=== PATIENT | female | born 1950 | race Caucasian/White ===

== ENCOUNTER 2017-11-01 06:10 | Inpatient (IN) ==
[2017-11-01] MEDS ORDERED: ASPIRIN 81 MG CHEWABLE TABLET PO ONE (06:21)
[2017-11-01] MEDS ORDERED: NS 1,000 ML IV ONE (06:21)
[2017-11-01] MEDS ORDERED: NITROGLYCERIN 0.4 MG SUBLINGUAL TABLET SL PRN (06:21)
[2017-11-01] MEDS ORDERED: HEPARIN 1,000unit/ml INJECTION 10ml IVP ONE (06:22)
[2017-11-01] MEDS: SALINE FLUSH 10ml SYRINGE IVF PRN ×2 (06:32→06:41)
--- NOTE | 2017-11-01 06:40 | Emergency Department Report ---
SOB HPI - General Chief Complaint: Shortness of Breath/Dyspnea Stated Complaint: dyspnea,htn Time Seen by Provider: 11/01/17 06:21 Source: patient, EMS, RN notes reviewed, old records reviewed Mode of arrival: EMS Limitations: no limitations - History of Present Illness 67yo woman presents to the ER this AM for evaluation of dyspnea at rest. 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 They stopped at a local gas station and called for EMS. Pt states that she has had some dyspnea at rest for the last 3- 4 days, but this became severe and disabling while driving this AM. Pt has never had sx like this before. Denies any CP or other sx besides air hunger. Pt recently changed to Dr. Eckert; has a h/o DM, but denies cardiac or pulmonary hx. This AM, pt d/c'ed her ultram, thinking that this med may have contributed to her sx. On initial evaluation, pt was tachypneic, tachy to 170s, and HTN to 270s/200s. Pt given 5mg of labetalol IV with decreased pressure (210s/140s) and decreased rate (140s). No dynamic changes on EKG, but ?ST inversion in aVR. On presentation, pts SaO2 had improved; only required 6L by NC to maintain sat of 92%. MD Complaint: shortness of breath Onset (ago): minute(s) Severity: severe Consistency/Duration: constant Relieving factors: oxygen, rest, upright position, medication (labetalol) Exacerbating factors: lying flat, exertion, movement, other (speaking) Known history of: diabetes Associated symptoms: denies other symptoms Treatment prior to arrival: oxygen, bronchodilator (No relief), other (Labetolol ) - Related Data Home Medications Medication Instructions Recorded Confirmed Humulin 70/30 (insulin NPH and reg See Label Instructions SQ BID 03/08/17 human insulin) 100 unit/mL (70-30) SQ Ibuprofen 600 mg PO PRN PRN 11/01/17 11/01/17 Tramadol [Ultram] 50 mg PO PRN PRN 11/01/17 11/01/17 Allergies Allergy/AdvReac Type Severity Reaction Status Date / Time metformin [From Glucophage] Allergy Severe Acidosis Verified 11/01/17 10:26 codeine [Codiene] AdvReac Shortness Verified 11/01/17 10:26 of Breath (Air) Review of Systems All systems: reviewed and negative except as stated Cardiovascular: Reports: as per HPI, dyspnea on exertion. Denies: chest pain, palpitations, orthopnea, edema, syncope, paroxysmal nocturnal dyspnea Respiratory: Reports: as per HPI, dyspnea. Denies: cough, wheezes, hemoptysis, stridor PFS Patient Stated Medical History Dental Problems Yes Hearing Loss Yes Other HEENT Yes: wears glasses Hypertension Yes Diabetes Mellitus Type 2 Yes Gastroesophageal Reflux Yes Disease Other Musculoskeletal Yes: fibromyalgia Clinic Medical History Carpal tunnel syndrome (Chronic Medical) Diabetes mellitus (Chronic Medical) HTN (hypertension) (Chronic Medical) Heart murmur (Chronic Medical) Hypercholesteremia (Chronic Medical) IBS (irritable bowel syndrome) (Chronic Medical) Obesity (Chronic Medical) Osteoarthritis (Chronic Medical) Thoracic outlet syndrome (Chronic Medical) Surgical History: Carpal tunnel bilaterally 1989. Cholecystectomy 1975. Tonsillectomy 1959. Tubal ligation 1977. Parotid tumor removal 1977, benign. Hernia surgery 1994 Family History: Family History Father , age 80 of CHF CHF (congestive heart failure) Prostate cancer Rheumatoid arthritis CVD (cardiovascular disease) Myocardial infarct Mother , age 70 lung CA Lung cancer Tachycardia Osteoporosis Celiac disease Sister , age 62 lung cancer Lung cancer Sister No problems noted. Sister No problems noted. - Social History Household members: spouse Current occupation: self employed, works for [employer], her and her , [place] Physical Exam - Limitations Limitations: no limitations - General General appearance: alert, in distress (Resp), obese (Morbid) - Normal Exams: Head:: Normocephalic without trauma Eyes:: Pupils are PERRLA w/ EOMI, No scleral icterus, irritation, or foreign bodies noted ENMT:: No facial trauma, nasal exudates, pharyngeal erythema, or exudates are noted Neck:: Full range of motion, without adenopathy Lymphatic:: No lymphadenopathy Musculoskeletal:: No tenderness, or deformity noted, good range of motion Integumentary:: No rashes, hives, or bruising noted Neurological:: Patient is alert, and oriented, cranial nerves, motor/sensory/ cerebellar, exams w/o gross deficits Psychiatric:: Patient exhibits, appropriate attention - Chest Chest inspection: Present: normal inspection, symmetric chest wall rise. Absent : tenderness, rash - Respiratory Respiratory exam: Present: wheezes (Throughout). Absent: normal lung sounds bilaterally (Absent lung sounds in LLL), respiratory distress, stridor, prolonged expiratory phase, crackles - Cardiovascular Cardiovascular exam: Present: tachycardia, normal heart sounds, +S1, +S2. Absent: regular rate, normal rhythm (?a-Fib), systolic murmur, diastolic murmur , rubs, gallop, clicks, +S3, +S4 - Abdominal Exam Abdominal exam: Present: soft, normal bowel sounds. Absent: distention, tenderness, guarding, rebound, rigidity Course - Consultations Consultation #1: Dr. Stack: Ok with starting heparin for now. Obtain PE study prior to considering further cardiac intervention. 0750: Pt will need unit admission. May require esmolol drip. Time: 06:25 Consultation #2: Hospitalist: Recommends target SBP of 180. May consider diuretics if fluid overloaded. Time: 07:45 Vital Signs Temperature 98.1 F 11/01/17 06:22 Pulse Rate 144 H 11/01/17 06:22 Respiratory Rate 24 11/01/17 06:22 Blood Pressure 217/116 H 11/01/17 06:22 Pulse Oximetry 92 11/01/17 06:22 Temperature 98.1 F 11/01/17 06:22 Pulse Rate 146 H 11/01/17 10:27 Respiratory Rate 28 H 11/01/17 10:27 Blood Pressure 226/135 H 11/01/17 09:53 Pulse Oximetry 100 11/01/17 10:27 Shortness of Breath/Dyspnea - [facility] Narrative Medical decision making narrative: Initial suspicion for PE based on sx and presenting VS. Elevated d-dimer corroborated this suspicion. Some apparently dynamic ST changes on EKG obtained in ER (compared to by EMS). CT-PE did not show a definitive PE or dissection, but was limited by body habitus and streak artifact. Sepsis labs obtained due to ground-glass opacities and grossly elevated WBCs. Will await results. After pt stabilized, discussed pt again with cardiology and hospitalist. Hospitalist will admit for further eval/treatment. Gave recs for management in the meanwhile. Cardiology also recommended unit admission with further eval. - Differential Diagnosis Likely: acute exacerbation of chronic obstructive airways disease, congestive heart failure, community acquired pneumonia, pulmonary embolism - Medical Records Attestation: I reviewed the patient's medical records. - Lab Data Attestation: I reviewed the patient's lab results. Result diagrams: 11/01/17 06:18 11/01/17 06:18 Lab Results 11/01/17 11/01/17 11/01/17 Range/Units 06:18 06:18 06:18 WBC 24.6 H (4.5-11.0) T/MM3 RBC 4.64 (4.00-5.20) M/MM3 Hgb 12.8 (12-16) GM/DL Hct 41.4 (36-46) % MCV 89.2 (80-100) UM3 MCH 27.6 (26-34) UUG MCHC 30.9 L (31-37) GM/DL RDW Std Deviation 49.2 (36.9-50.2) FL Plt Count 406 H (130-400) T/MM3 MPV 12.9 H (9.4-12.4) UM3 Immature Gran % (Auto) Not performed Neut % (Auto) Not performed Lymph % (Auto) Not performed [place] % (Auto) Not performed Eos % (Auto) Not performed Baso % (Auto) Not performed Neut # (Auto) Not performed Lymph # (Auto) Not performed [place] # (Auto) Not performed Eos # (Auto) Not performed Baso # (Auto) Not performed Abs Immat Gran (auto) Not performed Neutrophils % (Manual) 42.0 (33-66) % Lymphocytes % (Manual) 46.0 H (23-45) % Monocytes % (Manual) 8.0 (0-9.0) % Eosinophils % (Manual) 3.0 (0-4) % Basophils % (Manual) 1.0 (0-2) % Neutrophils # (Manual) 10.3 H (1.8-7.7) T/MM3 Lymphocytes # (Manual) 11.3 H (1-4.8) T/MM3 Monocytes # (Manual) 2.0 H (0-0.8) T/MM3 Eosinophils # (Manual) 0.7 H (0-0.5) T/MM3 Basophils # (Manual) 0.2 (0-0.2) T/MM3 RBC Morph Comment Normal D-Dimer 2991 H (0-230) NG/ML Turbidity < 20 (0-20) Sodium 146 H (134-144) MEQ/L Potassium 4.2 (3.6-5) MEQ/L Chloride 105 (98-107) MEQ/L Carbon Dioxide 25 (22-30) MEQ/L Anion Gap 16 H (5-15) MEQ/L BUN 13.0 (7-17) MG/DL Creatinine 0.9 (0.7-1.2) mg/dL GFR Calculation 62 BUN/Creatinine Ratio 14 (6-26) RATIO Glucose 274 H (65-110) MG/DL Calculated Osmolality 291 H (261-280) MOSM/KG Calcium 9.9 (8.4-10.2) MG/DL Total Bilirubin 0.70 (0.20-1.30) MG/DL Icterus Index < 2 (0-7) AST 25 (14-36) U/L ALT 33 (9-52) U/L Alkaline Phosphatase 108 (38-126) U/L Troponin I 0.042 (0-0.12) ng/ml NT-Pro-B Natriuret Pep 1080 H (0-175) pg/mL Total Protein 8.2 (6.3-8.2) g/dL Albumin 4.8 (3.5-5.0) g/dL Globulin 3.4 (2.4-3.6) G/DL Albumin/Globulin Ratio 1.4 (1.1-2.2) RATIO Lipase 107 (23-300) U/L Plasma Lactate (0.6-2.2) MMOL/L Specimen Hemolysis < 15 (0-25) 11/01/17 Range/Units 07:54 WBC (4.5-11.0) T/MM3 RBC (4.00-5.20) M/MM3 Hgb (12-16) GM/DL Hct (36-46) % MCV (80-100) UM3 MCH (26-34) UUG MCHC (31-37) GM/DL RDW Std Deviation (36.9-50.2) FL Plt Count (130-400) T/MM3 MPV (9.4-12.4) UM3 Immature Gran % (Auto) Neut % (Auto) Lymph % (Auto) [place] % (Auto) Eos % (Auto) Baso % (Auto) Neut # (Auto) Lymph # (Auto) [place] # (Auto) Eos # (Auto) Baso # (Auto) Abs Immat Gran (auto) Neutrophils % (Manual) (33-66) % Lymphocytes % (Manual) (23-45) % Monocytes % (Manual) (0-9.0) % Eosinophils % (Manual) (0-4) % Basophils % (Manual) (0-2) % Neutrophils # (Manual) (1.8-7.7) T/MM3 Lymphocytes # (Manual) (1-4.8) T/MM3 Monocytes # (Manual) (0-0.8) T/MM3 Eosinophils # (Manual) (0-0.5) T/MM3 Basophils # (Manual) (0-0.2) T/MM3 RBC Morph Comment D-Dimer (0-230) NG/ML Turbidity (0-20) Sodium (134-144) MEQ/L Potassium (3.6-5) MEQ/L Chloride (98-107) MEQ/L Carbon Dioxide (22-30) MEQ/L Anion Gap (5-15) MEQ/L BUN (7-17) MG/DL Creatinine (0.7-1.2) mg/dL GFR Calculation BUN/Creatinine Ratio (6-26) RATIO Glucose (65-110) MG/DL Calculated Osmolality (261-280) MOSM/KG Calcium (8.4-10.2) MG/DL Total Bilirubin (0.20-1.30) MG/DL Icterus Index (0-7) AST (14-36) U/L ALT (9-52) U/L Alkaline Phosphatase (38-126) U/L Troponin I 0.089 D (0-0.12) ng/ml NT-Pro-B Natriuret Pep (0-175) pg/mL Total Protein (6.3-8.2) g/dL Albumin (3.5-5.0) g/dL Globulin (2.4-3.6) G/DL Albumin/Globulin Ratio (1.1-2.2) RATIO Lipase (23-300) U/L Plasma Lactate 1.7 (0.6-2.2) MMOL/L Specimen Hemolysis < 15 (0-25) - Radiology Data Attestation: I reviewed the patient's radiology results. - EKG Data EKG #1 EKG attestation: Yes: I reviewed and interpreted this EKG. EKG shows normal: axis, intervals, QRS complexes Rate: tachycardia Rhythm: A. flutter ST segment depression in: v3, v4, v5 Critical Care Time Critical Care Time: Yes Total Critical Care Time: 95 Attestation: 95 min of critical care time assigned to this case due to its urgency, complexity of decision making, need for continued patient re-evaluation, or resources devoted to stabilizing the patient. Disposition Clinical Impression: Malignant hypertension, Pleural effusion, Ground glass opacity present on imaging of lung, Respiratory distress Disposition: 02 To [facility] Acute Care Condition: Improved Time of Disposition: 08:02 - Seen By: physician
[2017-11-01] MEDS: HEPARIN DRIP 20,000 UNIT/500 ML BAG IV SCH (06:41)
[2017-11-01] MEDS ORDERED: SALINE FLUSH 10ml SYRINGE ONE (06:56)
[2017-11-01] MEDS ORDERED: IOHEXOL 350mg/ml 100ml INJECTION ONE (06:56)
[2017-11-01] MEDS ORDERED: LABETALOL 100mg/20ml INJECTION IVP ONE ×2 (07:25→07:30)
[2017-11-01] MEDS ORDERED: NS IV PRN (07:28)
[2017-11-01] MEDS ORDERED: LABETALOL IV PRN (07:28)
--- NOTE | 2017-11-01 07:30 | XRay Report ---
Indication: Possible NSTEMI PROCEDURE: XR chest 1V: Encounter: Initial Comparison: CT angiogram of the chest from the same date Findings: Diffuse interstitial prominence with scattered groundglass opacities and interlobular septal thickening, seen on the CT. Small pleural effusions. No pneumothorax. Cardiac silhouette is moderately enlarged. Mediastinal contours are normal. Pulmonary vascularity is enlarged. Impression: Moderate to severe pulmonary edema. .
[2017-11-01] MEDS ORDERED: CEFEPIME 1 GM in NS 100 ML IV ONE (07:38)
--- NOTE | 2017-11-01 07:54 | CT Scan Report ---
Indication: Abrupt onset dyspnea PROCEDURE: CT angio pulm emb/aorta chest: Encounter: Initial Technique: Axial CT angiography in the systemic arterial phase was performed through the chest with contrast. Noncontrast axial CT imaging through the chest was also performed. Coronal and sagittal MIP reconstructed images were created and reviewed. Three-dimensional surface shaded volume rendered imaging of the aorta and arterial vasculature was created by the technologist on a dedicated workstation under the direction of the interpreting radiologist and reviewed. Axial CT angiography through the chest was also performed in the pulmonary arterial phase with coronal and sagittal MIP reconstructed images created and reviewed. Automated Exposure Control and Iterative Reconstruction dose reducing techniques were utilized. Contrast: 120mL Omnipaque 350 Comparison: Chest x-ray from today Findings: CT angiogram of the chest for PE: Pulmonary arteries: Exam is diagnostic to the interlobar pulmonary arterial level. Motion and streak artifact precludes adequate evaluation of the segmental and subsegmental vessels. There are no filling defects identified to suggest a pulmonary embolus. Other findings: Severe interlobular septal thickening with diffuse centrilobular groundglass opacities and small pleural effusions bilaterally. No pneumothorax. The central airways are patent. No axillary adenopathy. There are prominent mediastinal nodes in the paratracheal region measuring up to 1.5 cm in short axis dimension. Heart size is normal. No pericardial effusion. The upper abdomen shows no acute findings. Impression: 1. No pulmonary embolus. 2. Severe pulmonary edema. 3. Mediastinal adenopathy could be reactive due to the acute process in the chest although underlying neoplasm, metastatic disease or lymphoma cannot be entirely excluded. CT angiogram of the chest for aorta: Findings: Noncontrast images show no evidence of an intramural hematoma. There is significant attenuation artifact due to patient body habitus and motion. Postcontrast images show no definite evidence of aortic dissection. No aneurysm. Contrast bolus timing is somewhat suboptimal. The visualized upper abdominal aorta is normal in caliber with mild atherosclerotic plaque at the left renal and SMA origins. Please see the above report for further details on the extravascular findings in the chest. Impression: Somewhat limited exam without evidence of aortic aneurysm or dissection. .
[2017-11-01] MEDS ORDERED: LABETALOL 100mg/20ml INJECTION IVP PRN (11:16)
[2017-11-01] MEDS ORDERED: BUTALBITAL PO PRN (11:18)
[2017-11-01] MEDS ORDERED: CAFFEINE PO PRN (11:18)
[2017-11-01] MEDS ORDERED: ACETAMINOPHEN PO PRN (11:18)
[2017-11-01] MEDS ORDERED: LABETALOL 100 MG TABLET PO SCH (11:45)
[2017-11-01] MEDS ORDERED: LABETALOL 100 MG TABLET PO ONE (14:12)
[2017-11-01] MEDS ORDERED: AMIODARONE 150 MG in NS 100 ML IV ONE (14:17)
[2017-11-01] MEDS ORDERED: AMIODARONE 450 MG in NS 250ml 250 ML IV SCH (14:30)
--- NOTE | 2017-11-01 15:05 | Echocardiogram ---
DATE OF PROCEDURE November 01, [address] David Cortes This is a two-dimensional echo with spectral Doppler, color-flow and M-mode. It was obtained in a patient with hypertensive urgency. Left atrial dimension is normal. Left ventricular end-diastolic dimension is normal. Left ventricle wall thickness is increased. LV systolic function is normal with ejection fraction of 65%. Right atrium is normal. Right ventricle is normal. Aortic root dimension is normal. Mitral annulus is calcified. Mitral valve leaflets are normal with moderate mitral regurgitation. Aortic valve shows fibrocalcific changes with restriction on opening motion. Transaortic velocities are increased with peak velocity of 3.55 m/sec with peak gradient of 50 and mean gradient of 33. Aortic valve area is calculated at 1.14 cm2. There is no aortic insufficiency. Tricuspid valve shows mild tricuspid regurgitation with estimated pulmonary artery systolic pressure of 34. Pulmonary valve shows mild pulmonary insufficiency. There is no pericardial effusion. IMPRESSION 1. Normal LV systolic function with ejection fraction of 65%. 2. Mild concentric left ventricular hypertrophy. 3. Mitral annulus calcification with moderate mitral regurgitation. 4. Moderate aortic stenosis with a valve area of 1.14 cm2. 5. Mild tricuspid regurgitation with estimated pulmonary artery systolic pressure of 34. 6. Mild pulmonary insufficiency. MTDD
[2017-11-01] MEDS: AMLODIPINE 5 MG TABLET PO SCH (15:21)
--- NOTE | 2017-11-01 15:54 | History & Physical Report ---
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 Has never had any episode similar to this, denies nausea vomiting or malaise. Did not have any chest pain but did have some headache and blurry vision. She has had no sick contacts and has not had any medication changes. She was seen by her primary care physician approximately 2 weeks ago and at that time was told that her blood pressure was normal. Review of Systems All systems PM: 10-point ROS was reviewed, no additional remarkable complaints except Past Medical History Patient Stated Medical History Migraine Yes: infrequently Dental Problems Yes Hearing Loss Yes Other HEENT Yes: wears glasses Cardiac Arrhythmia Yes Heart Murmur Yes Hypertension Yes Diabetes Mellitus Type 2 Yes Gastroesophageal Reflux Yes Disease Other GI Yes: diverticulitis Hx Urinary Tract Infection Yes Other Musculoskeletal Yes: degenerative disk dz Shingles Yes Clinic Medical History Carpal tunnel syndrome (Chronic Medical) Diabetes mellitus (Chronic Medical) HTN (hypertension) (Chronic Medical) Heart murmur (Chronic Medical) Hypercholesteremia (Chronic Medical) IBS (irritable bowel syndrome) (Chronic Medical) Obesity (Chronic Medical) Osteoarthritis (Chronic Medical) Thoracic outlet syndrome (Chronic Medical) Surgical History: Carpal tunnel bilaterally 1989. Cholecystectomy 1975. Tonsillectomy 1959. Tubal ligation 1977. Parotid tumor removal 1977, benign. Hernia surgery 1994 Family History: Family History Father , age 80 of CHF CHF (congestive heart failure) Prostate cancer Rheumatoid arthritis CVD (cardiovascular disease) Myocardial infarct Mother , age 70 lung CA Lung cancer Tachycardia Osteoporosis Celiac disease Sister , age 62 lung cancer Lung cancer Sister No problems noted. Sister No problems noted. Family History Updates: Heart disease within multiple family members including one of her sons at the age of 33 having and PA - Social History Smoking status: Former smoker Substance use type: does not use Alcohol intake frequency: does not drink Medications Home Medications Medication Instructions Recorded Confirmed Type Humulin 70/30 (insulin NPH and reg See Label Instructions SQ BID 03/08/17 History human insulin) 100 unit/mL (70-30) SQ Ibuprofen 600 mg PO PRN PRN 11/01/17 11/01/17 History Tramadol [Ultram] 50 mg PO PRN PRN 11/01/17 11/01/17 History Allergies Allergy/AdvReac Type Severity Reaction Status Date / Time metformin [From Glucophage] Allergy Severe Acidosis Verified 11/01/17 10:26 codeine [Codiene] AdvReac Shortness Verified 11/01/17 10:26 of Breath (Air) Exam Vital Signs: Temperature 98.4 F 11/01/17 10:00 Pulse Rate 80 11/01/17 15:30 Respiratory Rate 31 H 11/01/17 15:30 Blood Pressure 198/93 H 11/01/17 14:24 Pulse Oximetry 100 11/01/17 15:30 Telemetry Rhythm: Sinus Rhythm Height/Weight/BMI: Height 5 ft 2 in Weight 130.3 kg Body Mass Index 52.5 - Constitutional Present: well developed, morbidly obese, cooperative - Routine HEENT Exam Head: Present: atraumatic, cushingoid faces Eye: Present: EOMI ENT: Present: mucous membranes moist, dentition normal - Routine Neck Exam Absent: JVD - Routine Respiratory Exam Present: CTA bilaterally. Absent: wheezes - Routine Cardiovascular Exam Present: S1, S2, murmur - Routine Abdominal Exam Present: soft, normoactive bowel sounds, non distended. Absent: tenderness - Routine Extremities Exam Present: normal capillary refill - Routine Skin Exam Present: dry, warm - Routine Neurological Exam Present: alert, oriented X3, CN II-XII intact - Routine Psychiatric Exam Present: normal affect Results - Labs CBC & Chem 7: 11/01/17 14:06 11/01/17 06:18 Assessment and Plan (1) Malignant hypertension Current visit: Yes Status: Acute (2) Morbid obesity Current visit: Yes Status: Acute (3) Ground glass opacity present on imaging of lung Current visit: Yes Status: Acute (4) Pleural effusion Current visit: Yes Status: Acute (5) Respiratory distress Current visit: Yes Status: Resolved Assessment and Plan: This is 67-year-old woman who has had an episode malignant hypertension that is showing improvement with current regimen, she has plateaued with systolic blood pressure around 200 and remained there this afternoon. The dyspnea has resolved with the control blood pressure. Although her D dimer was elevated she did not have a pulmonary embolus. Additional medications have been ordered by cardiology at this time. 3rd troponin trended up and is at 1.1. She remains otherwise comfortable with some of her chronic back pain being exacerbated while she is down in bed. Case discussed with Genoveva Jonas. My appreciation to her and to Dr. Stack. DISPOSITION: inpatient status in ICU DVT Prophylaxis: Heparin drip - Physician Narrative Narrative: Date: 11/01/17 Time: 1550 Hospital Course Summary Disclaimer: The visit summary below is not to be considered part of the above Progress Note.
[2017-11-01] MEDS ORDERED: HEPARIN 1,000unit/ml INJECTION 10ml IV ONE (16:07)
[2017-11-01] MEDS: FUROSEMIDE 40 MG/4 ML INJECTION IVP SCH (16:20)
[2017-11-01] MEDS: CARISOPRODOL 350 MG TABLET PO PRN (16:33)
[2017-11-01] MEDS: TRAMADOL/APAP 37.5 MG/325 MG TABLET PO PRN ×2 (16:33→21:08)
--- NOTE | 2017-11-01 17:17 | Cardiology Consult Note ---
<Genoveva Jonas - Last Filed: 11/02/17 07:38> History of Present Illness Consult date: 11/01/17 Requesting physician: David Cortes Consult reason: hypertension, atrial fibrillation, shortness of breath Chief complaint: SOA History of present illness: Lulu is a 67 year old female who admits to having a racing heart beats intermittently for the past few weeks. Today she was acutely short of air and presented to the ER this AM for evaluation of dyspnea at rest. 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 They stopped at a local gas station and called for EMS. She states that she has had some dyspnea at rest for the last 3-4 days, but this became severe and disabling while driving this AM. she has never had this before. Denies any CP or other sx besides air hunger. Pt recently changed to Dr. Eckert; has a h/o DM, but denies cardiac or pulmonary hx. This AM, pt d/c 'ed her ultram, thinking that this med may have contributed to her sx. On initial evaluation, pt was tachypneic, tachy to 170s, and HTN to 270s/200s. Pt given 5mg of labetalol IV with decreased pressure (210s/140s) and decreased rate (140s). No dynamic changes on EKG, but ?ST inversion in aVR. On presentation, pts SaO2 had improved; only required 6L by NC to maintain sat of 92%. Review of Systems - Constitutional Constitutional: Absent: chills, fatigue, fever(s) - EENMT Eyes: Present: blurry vision Balance: Absent: vertigo Mouth/Throat: Absent: sore throat - Cardiovascular Cardiovascular: Present: palpitations, dyspnea on exertion, edema. Absent: chest pain, syncope, orthopnea Vascular: Present: pedal edema - Respiratory Respiratory: Present: dyspnea, dyspnea on exertion. Absent: cough - Gastrointestinal Gastrointestinal: Absent: abdominal pain, diarrhea, nausea, vomiting - Genitourinary Genitourinary: Absent: dysuria - Integumentary/Breasts Integumentary: Absent: rash - Neurological Neurological: Absent: dizziness - Endocrine Endocrine: Present: palpitations PFSH Patient Stated Medical History Migraine Yes: infrequently Dental Problems Yes Hearing Loss Yes Other HEENT Yes: wears glasses Cardiac Arrhythmia Yes Heart Murmur Yes Hypertension Yes Diabetes Mellitus Type 2 Yes Gastroesophageal Reflux Yes Disease Other GI Yes: diverticulitis Hx Urinary Tract Infection Yes Other Musculoskeletal Yes: fibromyalgia Shingles Yes Clinic Medical History Carpal tunnel syndrome (Chronic Medical) Diabetes mellitus (Chronic Medical) HTN (hypertension) (Chronic Medical) Heart murmur (Chronic Medical) Hypercholesteremia (Chronic Medical) IBS (irritable bowel syndrome) (Chronic Medical) Obesity (Chronic Medical) Osteoarthritis (Chronic Medical) Thoracic outlet syndrome (Chronic Medical) Surgical History: Carpal tunnel bilaterally 1989. Cholecystectomy 1975. Tonsillectomy 1959. Tubal ligation 1977. Parotid tumor removal 1977, benign. Hernia surgery 1994 Family History: Family History Father , age 80 of CHF CHF (congestive heart failure) Prostate cancer Rheumatoid arthritis CVD (cardiovascular disease) Myocardial infarct Mother , age 70 lung CA Lung cancer Tachycardia Osteoporosis Celiac disease Sister , age 62 lung cancer Lung cancer Sister No problems noted. Sister No problems noted. - Social History Smoking status: Former smoker Substance use type: does not use Alcohol intake frequency: does not drink Household members: spouse Current occupation: self employed, works for [employer], her and her , [employer] Home Medications Medication Instructions Recorded Confirmed Type Tramadol [Ultram] 50 mg PO PRN PRN 11/01/17 11/01/17 History Acetaminophen [Tylenol] 325 - 650 mg PO Q5H PRN tab 11/05/17 Rx Amiodarone [Pacerone] 200 mg PO DAILY tab 11/05/17 Rx Amlodipine [Norvasc] 10 mg PO DAILY tab 11/05/17 Rx Atorvastatin [Lipitor] 20 mg PO HS tab 11/05/17 Rx Atropine Inj [Atropine] 0.5 mg IVP Q5M PRN vial 11/05/17 Rx Bisacodyl Supp [Dulcolax] 10 mg RECTALLY DAILY PRN 11/05/17 Rx suppositor Butalb/Acetaminophen/Caffeine 2 each PO Q4H PRN tab 11/05/17 Rx [Vnozpo-Bjanmhlc-Nrzq 50-325-40] Carisoprodol [Soma] 350 mg PO TID PRN tab 11/05/17 Rx Enoxaparin Sodium [Lovenox] 40 mg SQ DAILY@1700 syringe 11/05/17 Rx Furosemide [Lasix] 40 mg PO 0900,1700 tab 11/05/17 Rx Insulin Aspart [NovoLOG] 2 - 8 unit SQ SS PRN vial 11/05/17 Rx LORazepam [Ativan] 0.5 - 1 mg PO Q4H PRN tab 11/05/17 Rx Labetalol [Normodyne] 300 mg PO BID tab 11/05/17 Rx Milk of Magnesia [Mom] 30 ml PO DAILY PRN udc 11/05/17 Rx Nitroglycerin [Nitrostat] 0.4 mg SL Q5MIN3 PRN tab 11/05/17 Rx Pantoprazole Tab [Protonix Tab] 40 mg PO ACB tab 11/05/17 Rx Potassium Chloride [K-DUR 20 mEq 20 meq PO TIDWM tab 11/05/17 Rx Tablet] Zolpidem [Ambien] 5 mg PO HS PRN tab 11/05/17 Rx Allergies Allergy/AdvReac Type Severity Reaction Status Date / Time metformin [From Glucophage] Allergy Severe Acidosis Verified 11/01/17 10:26 codeine [Codiene] AdvReac Shortness Verified 11/01/17 10:26 of Breath (Air) Exam Vital signs: Temperature 98.4 F 11/01/17 10:00 Pulse Rate 126 H 11/01/17 17:00 Respiratory Rate 40 H 11/01/17 17:00 Blood Pressure 201/87 H 11/01/17 16:45 Pulse Oximetry 100 11/01/17 17:00 - Constitutional mild distress, morbidly obese, cooperative - Routine HEENT Exam Head: Present: normocephalic ENT: Present: mucous membranes moist - Routine Neck Exam Present: JVD. Absent: carotid bruit - Routine Chest/Breast/Axilla Exam Chest wall: Absent: tenderness - Routine Respiratory Exam Present: dyspnea, decreased breath sounds - Routine Cardiovascular Exam Present: RRR, murmur (II/), JVD - Routine Abdominal Exam Present: soft - Routine Extremities Exam Present: edema, pulses intact - Routine Skin Exam Present: intact, dry, warm - Routine Neurological Exam Present: alert, oriented X3 - Routine Psychiatric Exam Present: normal affect, normal thought process Results 11/01/17 14:06 11/01/17 06:18 Cardiac Enzymes 11/01/17 Range/Units 14:06 Troponin I 1.140 H D (0-0.12) ng/ml Coagulation 11/01/17 Range/Units 14:06 APTT 48.9 H (24-36) SEC CBC 11/01/17 Range/Units 14:06 Plt Count 251 D (130-400) T/MM3 Intake and Output 11/01/17 11/01/17 11/01/17 06:59 14:59 22:59 Intake Total 246.25 / 1346.25 103 / 103 Output Total 600 / 600 710 / 710 Balance -353.75 / 746.25 -607 / -607 Intake: IV 121.25 / 121.25 103 / 103 Amiodarone 150 mg In Ns 100 ml 103 / 103 @ 618 mls/hr IV O ONE Rx#: [id number] Heparin Drip 20,000 unit In 500 121.25 / 121.25 ml @ 1,000 UNIT/HR 25 mls/hr IV .Q20H ERICA Rx#:[id number] Oral 125 / 125 Output: Urine 600 / 600 Urine Amount (Catheter) 710 / 710 Other: Urine Appearance Clear Clear Urine Color Yellow Pale Yellow # Voids 1 Weight 287 lb 4.197 oz Patient Weight 11/02/17 06:59 Weight 287 lb 4.197 oz - Imaging and Cardiology Imaging & Cardiology Narrative: Date of Exam: 11/01/17 Type of Exam(s): US echo doppler complete DATE OF PROCEDURE November 01, [address] David Cortes This is a two-dimensional echo with spectral Doppler, color-flow and M-mode. It was obtained in a patient with hypertensive urgency. Left atrial dimension is normal. Left ventricular end-diastolic dimension is normal. Left ventricle wall thickness is increased. LV systolic function is normal with ejection fraction of 65%. Right atrium is normal. Right ventricle is normal. Aortic root dimension is normal. Mitral annulus is calcified. Mitral valve leaflets are normal with moderate mitral regurgitation. Aortic valve shows fibrocalcific changes with restriction on opening motion. Transaortic velocities are increased with peak velocity of 3.55 m/sec with peak gradient of 50 and mean gradient of 33. Aortic valve area is calculated at 1.14 cm2. There is no aortic insufficiency. Tricuspid valve shows mild tricuspid regurgitation with estimated pulmonary artery systolic pressure of 34. Pulmonary valve shows mild pulmonary insufficiency. There is no pericardial effusion. IMPRESSION 1. Normal LV systolic function with ejection fraction of 65%. 2. Mild concentric left ventricular hypertrophy. 3. Mitral annulus calcification with moderate mitral regurgitation. 4. Moderate aortic stenosis with a valve area of 1.14 cm2. 5. Mild tricuspid regurgitation with estimated pulmonary artery systolic pressure of 34. 6. Mild pulmonary insufficiency. 11/01/17 17:18 11/01/17 17:19 = = = = = = = = = = = = = = = = = = = = = = = = = = = = = = = = = = = = = = = = = = = = = = = = = = = = = = = = = = = Date of Exam: 11/01/17 Ordering Provider: Chase Ramirez DO Type of Exam(s): CT angio pulm emb/aorta chest Reason for Exam(s): Abrupt onset dyspnea Indication: Abrupt onset dyspnea PROCEDURE: CT angio pulm emb/aorta chest: Encounter: Initial Technique: Axial CT angiography in the systemic arterial phase was performed through the chest with contrast. Noncontrast axial CT imaging through the chest was also performed. Coronal and sagittal MIP reconstructed images were created and reviewed. Three-dimensional surface shaded volume rendered imaging of the aorta and arterial vasculature was created by the technologist on a dedicated workstation under the direction of the interpreting radiologist and reviewed. Axial CT angiography through the chest was also performed in the pulmonary arterial phase with coronal and sagittal MIP reconstructed images created and reviewed. Automated Exposure Control and Iterative Reconstruction dose reducing techniques were utilized. Contrast: 120mL Omnipaque 350 Comparison: Chest x-ray from today Findings: CT angiogram of the chest for PE: Pulmonary arteries: Exam is diagnostic to the interlobar pulmonary arterial level. Motion and streak artifact precludes adequate evaluation of the segmental and subsegmental vessels. There are no filling defects identified to suggest a pulmonary embolus. Other findings: Severe interlobular septal thickening with diffuse centrilobular groundglass opacities and small pleural effusions bilaterally. No pneumothorax. The central airways are patent. No axillary adenopathy. There are prominent mediastinal nodes in the paratracheal region measuring up to 1.5 cm in short axis dimension. Heart size is normal. No pericardial effusion. The upper abdomen shows no acute findings. Impression: 1. No pulmonary embolus. 2. Severe pulmonary edema. 3. Mediastinal adenopathy could be reactive due to the acute process in the chest although underlying neoplasm, metastatic disease or lymphoma cannot be entirely excluded. CT angiogram of the chest for aorta: Findings: Noncontrast images show no evidence of an intramural hematoma. There is significant attenuation artifact due to patient body habitus and motion. Postcontrast images show no definite evidence of aortic dissection. No aneurysm. Contrast bolus timing is somewhat suboptimal. The visualized upper abdominal aorta is normal in caliber with mild atherosclerotic plaque at the left renal and SMA origins. Please see the above report for further details on the extravascular findings in the chest. Impression: Somewhat limited exam without evidence of aortic aneurysm or dissection. 11/02/17 07:43 Date of Exam: 11/01/17 Ordering Provider: David Cortes MD Type of Exam(s): US carotid doppler BI Reason for Exam(s): malignant hypertension Indication: malignant hypertension PROCEDURE: US carotid doppler BI: TECHNIQUE: Grayscale, color and duplex Doppler imaging was performed of the carotid systems bilaterally. Velocities in cm/sec - validated velocity measurements with angiographic measurements, velocity criteria are extrapolated from diameter data as defined by the Society of Radiologists in Ultrasound Consensus Conference Radiology 2003; 229;340-346. RIGHT: PSV ICA 116 EDV ICA 31 PSV CCA 83 EDV CCA 10 SVR 1.3 PSV ECA 82 ICA Diameter reduction 20%-40% (1.2-1.4 [id number])% LEFT: PSV ICA 111 EDV ICA 33 PSV CCA 85 EDV CCA 23 SVR 1.2 PSV ECA 52 ICA Diameter reduction 20%-40% (1.2-1.4 [id number])% The right vertebral artery is patent with cephalic flow. The left vertebral artery is patent with cephalic flow. Diffuse common carotid intimal wall thickening bilaterally. Scattered calcified plaque in the carotid bulbs and proximal ICAs. IMPRESSION: No hemodynamically significant carotid stenosis. EKG interpretations - EKG EKG shows: sinus rhythm - Dysrhythmias Ventricular dysrhythmias: ventricular premature complexes Assessment and Plan - Assessment and Plan (1) NSTEMI (non-ST elevated myocardial infarction) Status: Acute Elevated Troponin: 1) 0.042, 2)0.089, 3) 1.140 - Continue to trend - Heparin drip - NPO after breakfast for LHC in afternoon - Denies chest pain, however is diabetic (2) Atrial fibrillation with RVR Status: Acute self converted, symptomatic, reports palpitations - 2D echo: Normal LV systolic function with ejection fraction of 65%, Mild concentric left ventricular hypertrophy, Mitral annulus calcification with moderate mitral regurgitation, Moderate aortic stenosis with a valve area of 1.14 cm2, Mild tricuspid regurgitation with estimated pulmonary artery systolic pressure of 34, Mild pulmonary insufficiency. - Lasix 40mg IV Q8H - Amiodarone bolus and drip for antiarrhythmic therapy - Continue to monitor cardiac telemetry - EKG in am - TSH and [facility] (3) Malignant hypertension Status: Acute Increase Labetalol to 200mg po BID - Add Amlodipine 5mg daily - Renal duplex - UA - Assessment and Plan NSTEMI: Elevated Troponin: 1) 0.042, 2)0.089, 3) 1.140 - Continue to trend - Heparin drip - NPO after breakfast for LHC in afternoon - Denies chest pain, however is diabetic AFib RVR: self converted, symptomatic, reports palpitations - 2D echo: Normal LV systolic function with ejection fraction of 65%, Mild concentric left ventricular hypertrophy, Mitral annulus calcification with moderate mitral regurgitation, Moderate aortic stenosis with a valve area of 1.14 cm2, Mild tricuspid regurgitation with estimated pulmonary artery systolic pressure of 34, Mild pulmonary insufficiency. - Lasix 40mg IV Q8H - Amiodarone bolus and drip for antiarrhythmic therapy - Continue to monitor cardiac telemetry - EKG in am - TSH and [facility] HTN: Increase Labetalol to 200mg po BID - Add Amlodipine 5mg daily - Renal duplex - UA Thank you for allowing us to participate in the care of this patient. Hospital Course Summary Disclaimer: The visit summary below is not to be considered part of the above Progress Note. <Ritesh Stack - Last Filed: 11/06/17 13:46> [facility] Medical History Carpal tunnel syndrome (Chronic Medical) Diabetes mellitus (Chronic Medical) HTN (hypertension) (Chronic Medical) Heart murmur (Chronic Medical) Hypercholesteremia (Chronic Medical) IBS (irritable bowel syndrome) (Chronic Medical) Obesity (Chronic Medical) Osteoarthritis (Chronic Medical) Thoracic outlet syndrome (Chronic Medical) Family History: Family History Father , age 80 of CHF CHF (congestive heart failure) Prostate cancer Rheumatoid arthritis CVD (cardiovascular disease) Myocardial infarct Mother , age 70 lung CA Lung cancer Tachycardia Osteoporosis Celiac disease Sister , age 62 lung cancer Lung cancer Sister No problems noted. Sister No problems noted. Exam Vital signs: Temperature 97 F 11/05/17 12:00 Pulse Rate 77 11/05/17 12:00 Respiratory Rate 20 11/05/17 12:00 Blood Pressure 117/73 11/05/17 12:00 Pulse Oximetry 96 11/05/17 12:00 Results 11/05/17 04:52 11/05/17 04:52 Assessment and Plan - Attestation Attestation Narrative: 11/06/17 13:46 Recommendation After examining the patient I agree with the above assessment. I am involved in the formulation of the patient's plan of care. - Assessment and Plan (1) Malignant hypertension Status: Acute (2) NSTEMI (non-ST elevated myocardial infarction) Status: Acute (3) Atrial fibrillation with RVR Status: Acute (4) Aortic stenosis, severe Status: Acute (5) CAD (coronary artery disease), [place] coronary artery Status: Acute Hospital Course Summary Disclaimer: The visit summary below is not to be considered part of the above Progress Note.
--- NOTE | 2017-11-01 17:26 | Ultrasound Report ---
Indication: malignant hypertension PROCEDURE: US carotid doppler BI: TECHNIQUE: Grayscale, color and duplex Doppler imaging was performed of the carotid systems bilaterally. Velocities in cm/sec - validated velocity measurements with angiographic measurements, velocity criteria are extrapolated from diameter data as defined by the Society of Radiologists in Ultrasound Consensus Conference Radiology 2003; 229;340-346. RIGHT: PSV ICA 116 EDV ICA 31 PSV CCA 83 EDV CCA 10 SVR 1.3 PSV ECA 82 ICA Diameter reduction 20%-40% (1.2-1.4 [id number])% LEFT: PSV ICA 111 EDV ICA 33 PSV CCA 85 EDV CCA 23 SVR 1.2 PSV ECA 52 ICA Diameter reduction 20%-40% (1.2-1.4 [id number])% The right vertebral artery is patent with cephalic flow. The left vertebral artery is patent with cephalic flow. Diffuse common carotid intimal wall thickening bilaterally. Scattered calcified plaque in the carotid bulbs and proximal ICAs. IMPRESSION: No hemodynamically significant carotid stenosis. .
[2017-11-01] MEDS ORDERED: AMIODARONE 900 MG in NS 500ml 500 ML IV SCH (20:30)
[2017-11-01] MEDS: LABETALOL 100 MG TABLET PO SCH (21:08)
[2017-11-01] MEDS: ZOLPIDEM 5 MG TABLET PO PRN (21:08)
[2017-11-01] MEDS: INSULIN ASPART 100unit/ml INJECTION SQ PRN (21:26)
[2017-11-02] MEDS: FUROSEMIDE 40 MG/4 ML INJECTION IVP SCH ×3 (00:06→18:11)
[2017-11-02] MEDS: SALINE FLUSH 10ml SYRINGE IVF PRN ×2 (00:07→21:02)
[2017-11-02] MEDS: HEPARIN DRIP 20,000 UNIT/500 ML BAG IV SCH (01:13)
[2017-11-02] MEDS: TRAMADOL/APAP 37.5 MG/325 MG TABLET PO PRN ×2 (06:01→19:30)
[2017-11-02] MEDS: INSULIN ASPART 100unit/ml INJECTION SQ PRN ×2 (06:01→21:01)
[2017-11-02] MEDS: LABETALOL 100 MG TABLET PO SCH ×2 (08:10→20:43)
[2017-11-02] MEDS: AMLODIPINE 5 MG TABLET PO SCH (08:11)
--- NOTE | 2017-11-02 08:32 | Ultrasound Report ---
Indication: HTN PROCEDURE: US renal doppler: Encounter: Initial Comparison: None Technique: Grayscale and color Doppler sonographic imaging of both kidneys was performed with duplex evaluation of the renal arteries. Findings: Exam was technically changing due to patient limitations. Scans of the kidneys demonstrate normal morphology. The right kidney measures 10.7 cm in length. The left kidney measures 10.5 cm in length. There is no collecting system dilatation, contour deforming mass, nephrolithiasis, or abnormal perinephric fluid collection. Color Doppler imaging demonstrates normal vascularization. Resistive indices from the intrarenal arteries in the upper, middle, and lower portions of the right kidney are normal. Resistive indices from the intrarenal arteries in the upper, middle, and lower portions of the left kidney are normal. Arterial waveforms are normal. Impression: No evidence of hemodynamically significant renal arterial stenosis. .
[2017-11-02] MEDS: PANTOPRAZOLE 40 MG INJECTION IVP SCH (09:30)
[2017-11-02] MEDS: CARISOPRODOL 350 MG TABLET PO PRN ×2 (10:18→16:38)
[2017-11-02] MEDS: MORPHINE SULFATE 10 MG SYRINGE IVP PRN ×2 (10:18→16:40)
[2017-11-02] MEDS ORDERED: PROMETHAZINE 25 MG INJECTION IVP PRN ×2 (10:38→16:33)
--- NOTE | 2017-11-02 11:14 | Cardiology Progress Note ---
Exam Vital signs: Temperature 98.2 F 11/02/17 03:30 Pulse Rate 85 11/02/17 07:00 Respiratory Rate 31 H 11/02/17 07:00 Blood Pressure 164/82 H 11/02/17 07:00 Pulse Oximetry 96 11/02/17 07:00 Inpatient Medications: Generic Name Dose Route Start Last Admin Trade Name Freq PRN Reason Stop Dose Admin Acetaminophen/Butalbital/Caffeine 2 each 11/01/17 11:18 Fioricet PO Q4H PRN Headache Amlodipine Besylate 5 mg 11/01/17 14:15 11/02/17 08:11 Norvasc PO 5 mg DAILY ERICA Administration Carisoprodol 350 mg 11/01/17 16:06 11/02/17 10:18 Soma PO 350 mg TID PRN Administration Furosemide 40 mg 11/01/17 17:00 11/02/17 08:11 Lasix IVP 40 mg Q8HR ERICA Administration Heparin Sodium (Porcine) 20,000 unit in 500 mls @ 30 mls/hr 11/01/17 06:30 06:00 Heparin Drip IV 1,200 unit/hr .[id number] ERICA 30 mls/hr Protocol Titration 1,200 UNIT/HR Amiodarone HCl 900 mg/ Sodium 500 mls @ 16.66 mls/hr 11/01/17 20:30 11/02/17 06:00 Chloride IV 0.5 mg/min .Q24H ERICA 16.7 mls/hr 0.5 MG/MIN Infusion Insulin Aspart 2 - 8 unit 11/01/17 16:09 11/02/17 06:01 Novolog SQ 3 unit SS PRN Administration Hyperglycemia Protocol Labetalol HCl 200 mg 11/01/17 21:00 11/02/17 08:10 Normodyne PO 200 mg BID ERICA Administration Morphine Sulfate 2 - 5 mg 11/01/17 09:58 11/02/17 10:18 Morphine Sulfate Inj IVP 2 mg Q5M PRN Administration Chest pain Nitroglycerin 0.4 mg 11/01/17 06:21 11/01/17 06:20 Nitrostat SL 0.4 mg Q5MIN3 PRN Administration Chest pain Potassium Chloride 20 meq 11/01/17 17:30 11/02/17 08:11 K-Dur 20 Meq Tablet PO 20 meq TIDWM ERICA Administration Sodium Chloride 10 - 80 ml 11/01/17 06:21 11/02/17 00:07 Iv Flush IVF 10 ml PRN PRN Administration Flushing Tramadol/Acetaminophen 1 tab 11/01/17 16:11 11/02/17 06:01 Ultracet PO 1 tab Q4H PRN Administration Pain Zolpidem Tartrate 5 mg 11/01/17 20:44 11/01/17 21:08 Ambien PO 5 mg HS PRN Administration Insomnia Discontinued Medications Generic Name Dose Route Start Last Admin Trade Name Freq PRN Reason Stop Dose Admin Aspirin 324 mg 11/01/17 06:21 11/01/17 06:18 Asa PO 11/01/17 06:22 324 mg O ONE Administration Heparin Sodium (Beef Lung) 4,000 unit 11/01/17 06:22 11/01/17 06:30 Heparin Bolus IVP 11/01/17 06:23 4,000 unit O ONE Administration Heparin Sodium (Beef Lung) 1,000 unit 11/01/17 16:07 11/01/17 16:47 Heparin Bolus IV 11/01/17 16:08 1,000 unit O ONE Administration Sodium Chloride 1,000 mls @ 1,000 mls/hr 11/01/17 06:21 11/01/17 08:16 Normal Saline IV 11/01/17 07:20 Infused .Q1H ONE Infusion Labetalol HCl 200 mg/ Sodium 200 mls @ 60 mls/hr 11/01/17 07:28 Chloride IV .Q3H20M PRN Protocol 1 MG/MIN Cefepime HCl 1 gm/ Sodium 100 mls @ 200 mls/hr 11/01/17 07:38 11/01/17 09:13 Chloride IV 11/01/17 08:07 Infused O ONE Infusion Amiodarone HCl 450 mg/ Sodium 250 mls @ 33.33 mls/hr 11/01/17 14:30 11/01/17 21:10 Chloride IV 11/01/17 20:30 Infused .Q7H31M ERICA Infusion 1 MG/MIN Amiodarone HCl 150 mg/ Sodium 103 mls @ 618 mls/hr 11/01/17 14:17 11/01/17 15 :03 Chloride IV 11/01/17 14:26 Infused O ONE Infusion Labetalol HCl 5 mg 11/01/17 07:25 Trandate IVP 11/01/17 07:26 O ONE Labetalol HCl 20 mg 11/01/17 07:30 11/01/17 07:31 Trandate IVP 11/01/17 07:31 20 mg O ONE Administration Labetalol HCl 5 mg 11/01/17 11:16 11/01/17 12:53 Trandate IVP 5 mg O PRN Administration SBP>180 Labetalol HCl 100 mg 11/01/17 11:45 11/01/17 12:05 Normodyne PO 100 mg BID ERICA Administration Labetalol HCl 100 mg 11/01/17 14:12 11/01/17 14:12 Normodyne PO 11/01/17 14:13 100 mg O ONE Administration - Urinary Catheter Management Urethral Cath placed during this visit: yes Insertion date: 11/01/17 Results 11/01/17 14:06 11/01/17 06:18 Cardiac Enzymes 11/01/17 11/01/17 11/02/17 Range/Units 14:06 19:48 01:08 Troponin I 1.140 H D 1.800 H D 1.310 H (0-0.12) ng/ml 11/02/17 Range/Units 07:33 Troponin I 1.060 H (0-0.12) ng/ml Coagulation 11/01/17 11/02/17 11/02/17 Range/Units 14:06 01:08 08:45 APTT 48.9 H 54.3 H 63.5 H (24-36) SEC CBC 11/01/17 Range/Units 14:06 Plt Count 251 D (130-400) T/MM3 Intake and Output 11/01/17 11/02/17 11/02/17 22:59 06:59 14:59 Intake Total 1164.883 / 1164.883 827.1 / 827.1 Output Total 2009 2185 / 2185 Balance -845.117 / -845.117 -1357.9 / -1357.9 Intake: IV 544.883 / 544.883 367.1 / 367.1 Amiodarone 150 mg In Ns 100 ml 103 / 103 @ 618 mls/hr IV O ONE Rx#: [id number] Amiodarone 450 mg In NS 250ml 202.167 / 202.167 250 ml @ 1 MG/MIN 33.33 mls/hr IV .Q7H31M ERICA Rx#:[id number] Amiodarone 900 mg In NS 500ml 13.883 / 13.883 133.6 / 133.6 500 ml @ 0.5 MG/MIN 16.66 mls/ hr IV .Q24H ERICA Rx#:[id number] Heparin Drip 20,000 unit In 500 225.833 / 225.833 233.5 / 233.5 ml @ 1,200 UNIT/HR 30 mls/hr IV .[id number] ERICA Rx#:[id number] Oral 620 / 620 460 / 460 Output: Urine Amount (Catheter) 2009 2185 / 2185 Other: Urine Appearance Clear Clear Urine Color Pale Pale Yellow Yellow Stool Color Brown Stool Consistency Formed Size of Bowel Movement Small Assessment and Plan - Assessment and Plan (1) NSTEMI (non-ST elevated myocardial infarction) Current visit: Yes Status: Acute (2) Atrial fibrillation with RVR Current visit: Yes Status: Acute (3) Malignant hypertension Current visit: Yes Status: Acute Hospital Course Summary Disclaimer: The visit summary below is not to be considered part of the above Progress Note.
[2017-11-02] MEDS ORDERED: LIDOCAINE 1% (10mg/ml) 30ml SDV INJ ONE (12:28)
[2017-11-02] MEDS ORDERED: HEPARIN 1,000 UNITS/500 ML PREMIX (*CVL ONLY*) IV ONE (12:28)
--- NOTE | 2017-11-02 13:41 | Progress Note ---
- Date 11/02/17 Subjective: Patient seen before scheduled heart catheter. Not especially nervous and denying any chest pain. She has however experiencing exacerbation of her back pain as she has been in hospital bed overnight. Denies any of the problems this time other than being NPO prior to procedure Objective Vital signs: Temperature 98.2 F 11/02/17 03:30 Pulse Rate 85 11/02/17 07:00 Respiratory Rate 31 H 11/02/17 07:00 Blood Pressure 164/82 H 11/02/17 07:00 Pulse Oximetry 96 11/02/17 07:00 Rhythm: Normal Sinus Rhythm Height/Weight/BMI: Height 5 ft 2 in Weight 130.3 kg Body Mass Index 52.5 - Constitutional Present: no acute distress, well developed, morbidly obese - Routine HEENT Exam Eye: Present: EOMI ENT: Present: mucous membranes moist, dentition normal - Routine Respiratory Exam Present: CTA bilaterally. Absent: wheezes - Routine Cardiovascular Exam Present: RRR. Absent: murmur - Routine Abdominal Exam Present: soft, normoactive bowel sounds, non distended. Absent: tenderness - Routine Extremities Exam Present: normal capillary refill - Routine Skin Exam Present: dry, warm - Routine Neurological Exam Present: alert, oriented X3, CN II-XII intact - Routine Lymphatic Exam Lymphatic: Absent: adenopathy - Routine Psychiatric Exam Present: normal affect Results - Labs CBC & Chem 7: 11/01/17 14:06 11/01/17 06:18 Assessment and Plan (1) Malignant hypertension Current visit: Yes Status: Acute (2) NSTEMI (non-ST elevated myocardial infarction) Current visit: Yes Status: Acute (3) Morbid obesity Current visit: Yes Status: Acute (4) Ground glass opacity present on imaging of lung Current visit: Yes Status: Acute (5) Pleural effusion Current visit: Yes Status: Acute (6) Respiratory distress Current visit: Yes Status: Resolved Assessment and Plan: Patient has increased troponin to 1.8, likely beyond the realm of accelerated hypertension explaining the event. Dr. Stack has the patient scheduled for a heart catheter today. Hypertensive crisis appears to be well controlled on current medications. Back pain is moderately exacerbated and she is on a muscle relaxer as well as her home medications tramadol. Due to the increased discomfort of told nursing to go ahead and give 2 mg of morphine is a PRN treatment. Continue the antihypertensive treatment with patient staying currently within goal of her acute changes. Noted patient did have gram-positive cultures in one bottle that are pending further identification. At this point the still appears to be contaminant and I have not started any antibiotics for this. DISPOSITION: inpatient status in the ICU. Awaiting to see which that she shall be returning to after the heart catheter. DVT Prophylaxis: Heparin drip - Physician Narrative Narrative: Date: 11/02/17 Time: 1334 Hospital Course Summary Disclaimer: The visit summary below is not to be considered part of the above Progress Note.
[2017-11-02] MEDS ORDERED: FentaNYL 100 MCG/2 ML INJECTION ONE (14:54)
[2017-11-02] MEDS ORDERED: SALINE FLUSH 10ml SYRINGE ONE (14:54)
[2017-11-02] MEDS ORDERED: MIDAZOLAM 2mg/2ml INJECTION ONE (14:54)
[2017-11-02] MEDS ORDERED: HEPARIN 1,000unit/ml INJECTION 10ml ONE (15:19)
--- NOTE | 2017-11-02 16:25 | Cardiac Catheterization Report ---
DATE OF PROCEDURE November 02, 2017 INDICATION The patient is a 67-year-old lady who was admitted with an acute pulmonary edema and severe hypertension and ruled in for [id number] myocardial infarction and evaluation revealed aortic stenosis by echocardiography and was referred for further evaluation by cardiac catheterization and renal angiogram. INFORMED CONSENT Informed consent was obtained after explaining the procedure and the potential risks to the patient who agreed to proceed with the procedure. PROCEDURE 1. Left heart catheterization. 2. Coronary angiography. 3. Left ventriculography. 4. Right heart catheterization. 5. Abdominal aortography. 6. Right femoral angiography to visualize the vessel for closure device. 7. Successful Mynx deployment for hemostasis. TECHNIQUE She was prepped and draped in the usual sterile techniques. Conscious sedation was performed using Versed and fentanyl. 1% lidocaine was used for local anesthesia. Using modified Seldinger technique, arterial access was obtained into the right femoral artery with placement of a 6-[place] arterial sheath. Venous access was obtained into the right femoral vein with placement of a 7- [place] venous sheath. HEMODYNAMIC DATA Hemodynamic data were obtained by advancing a [place] catheter through the venous system and right heart into the pulmonary artery. Pulmonary capillary wedge pressure mean of 23, pulmonary artery pressure was 54/ 24 with a mean of 37, right ventricular pressure was 54/17 with EDP of 22, and right atrial mean pressure of 19. LEFT VENTRICULOGRAPHY Left ventriculography in single-plane MILLS shallow projection showed normal LV systolic function with ejection fraction of about 65% with about 25-30 mm of gradient across the aortic valve. LVEDP was about 26. Aortic saturation was 94% and mixed venous saturation obtained from pulmonary artery position was 52%. Aortic valve area is calculated to be about 0.7-0.8 cm2. Thermodilution cardiac output was 4.29 L/min with an index of 1.9 L/min/m2. CORONARY ANGIOGRAPHY Left main was free of significant lesions and bifurcated into left anterior descending and left circumflex arteries. Left anterior descending artery had diffuse disease of up to about 30% but no hemodynamically significant lesions in LAD or diagonals. Left circumflex artery was free of significant lesions. Obtuse marginal had about 30% stenosis. Left coronary system had mild to moderate calcification. Right coronary artery had mid 80% stenosis. ABDOMINAL AORTOGRAPHY Abdominal aortography showed smooth abdominal aorta with no significant lesions or aneurysms. There were single renal arteries to each kidney which were patent. Right femoral angiography showed patent common femoral, proximal SFA and profunda and therefore Mynx was used for hemostasis. IMPRESSION 1. Normal LV systolic function with ejection fraction of about 65%. 2. Aortic stenosis with a valve area of 0.7-0.8 cm2. 3. Coronary artery disease as described above. 4. Moderate elevation in right heart pressures. 5. No evidence of renal artery stenosis. 6. Successful Mynx deployment for hemostasis. PLAN Will increase diuretics to improve her symptoms and pulmonary capillary wedge pressure. Meanwhile, will transfer her in the near future for cardiovascular surgical consultation for aortic valve replacement and coronary artery bypass graft. Will continue medical management for hypertension. HERMILA
[2017-11-02] MEDS ORDERED: MAG-AL + SIM ORAL LIQUID 30ml PO PRN (16:33)
[2017-11-02] MEDS ORDERED: NITROGLYCERIN 0.4 MG SUBLINGUAL TABLET SL PRN (16:33)
[2017-11-02] MEDS ORDERED: ATROPINE 1 MG/ML INJECTION IVP PRN (16:33)
[2017-11-02] MEDS ORDERED: BISACODYL 10 MG SUPPOSITORY RECTALLY PRN (16:33)
[2017-11-02] MEDS ORDERED: ACETAMINOPHEN 325 MG TABLET PO PRN (16:33)
[2017-11-02] MEDS ORDERED: ONDANSETRON 4 MG/2 ML INJECTION IVP PRN (16:33)
[2017-11-02] MEDS ORDERED: LORazepam 0.5 MG TABLET PO PRN (16:33)
[2017-11-02] MEDS ORDERED: METOCLOPRAMIDE 10mg/2ml INJECTION IVP PRN (16:33)
[2017-11-02] MEDS ORDERED: Bisacodyl EC TAB 5 MG TABLET PO PRN (16:33)
[2017-11-02] MEDS: AMIODARONE 200 MG TABLET PO SCH (17:54)
[2017-11-02] MEDS: ENOXAPARIN 40 MG/0.4 ML INJECTION SQ SCH (18:11)
[2017-11-02] MEDS ORDERED: AMIODARONE 900 MG in NS 500ml 500 ML IV SCH (19:00)
[2017-11-03] MEDS: FUROSEMIDE 40 MG/4 ML INJECTION IVP SCH ×2 (01:07→09:41)
[2017-11-03] MEDS: TRAMADOL/APAP 37.5 MG/325 MG TABLET PO PRN ×3 (03:06→21:02)
[2017-11-03] MEDS: INSULIN ASPART 100unit/ml INJECTION SQ PRN ×4 (06:41→21:03)
[2017-11-03] MEDS: LABETALOL 100 MG TABLET PO SCH ×2 (08:53→21:02)
[2017-11-03] MEDS: AMIODARONE 200 MG TABLET PO SCH (08:55)
[2017-11-03] MEDS: AMLODIPINE 5 MG TABLET PO SCH (08:56)
[2017-11-03] MEDS: PANTOPRAZOLE 40 MG INJECTION IVP SCH (08:56)
[2017-11-03] MEDS: SALINE FLUSH 10ml SYRINGE IVF PRN ×2 (08:58→09:42)
--- NOTE | 2017-11-03 09:37 | Progress Note ---
- Date 11/03/17 Subjective: 67y/o female pt with VHD with aortic stenosis and mitral regurgitation, HTN, HLP , IBS, DM, PAF and h/o thoracic outlet syndrome presented to the ED with SOA. 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 They stopped at a local gas station and called for EMS. Pt states that she has had some dyspnea at rest for the last 3-4 days, but this became severe and disabling while driving this AM. Pt has never had sx like this before. Denies any CP or other sx besides air hunger. On initial evaluation in the ED, pt was tachypneic, tachy to 170s, and HTN to 270s/200s. Pt given 5mg of labetalol IV with decreased pressure (210s/140s) and decreased rate (140s). No dynamic changes on EKG, but T inversion in aVR. On presentation, pts SaO2 had improved; only required 6L by NC to maintain sat of 92%. She did have elevated troponin which peaked at 1.8. She underwent HC by Dr. Stack and was found to have significant stenosis in the mid RCA (80%) as well as severe (NICHOLAS 0.7-0.8cm2). No Renal artery stenosis. Elevated PCWP. She was diuresed. The plan for her is to be evaluated by CV surgery for possible AVR and Bypass. Her EF is 65%. Today, she is up in the chair. SHe denies any complaints except for her chronic back and left hip pain. She denies feeling SOA. She has not been ambulating much. She denies BLEVINS, lightheadedness or dizziness. She denies CP or palp. She denies N/V/D/C. No edema. Her legs hurt to touch but that is not new. SHe reports it is from her fibromyalgia. Objective Vital signs: Temperature 98.0 F 11/03/17 00:00 Pulse Rate 71 11/03/17 07:00 Respiratory Rate 20 11/03/17 07:00 Blood Pressure 154/71 H 11/03/17 07:00 Pulse Oximetry 96 11/03/17 07:00 Rhythm: Normal Sinus Rhythm Comments: Gen: alert and oriented. NAD. Pleasant and conversive Skin: warm and dry. HEENT: NC/AT PERRL, EOMI, sclera, lids and conjunctiva wnl. MMM. OP clear. Neck: supple, No JVD, Carotids 2+ with murmur radiating bilaterally Lungs: Clear. No rales, rhonchi or wheezes. Heart: regular. 3/6 DIANA radiating to bilateral carotids Abdomen: soft. NT/ND. +BS. MS: good strength and ROM. Trace non pitting edema. Neuro: no focal deficit Psy: appropriate mood and affect. Results - Labs CBC & Chem 7: 11/03/17 04:56 11/03/17 04:56 - ABG Interpretation ABG results: 11/02/17 15:09 VBG pH 7.361 VBG pCO2 56.8 H VBG pO2 29.6 L VBG HCO3 32.2 H VBG Total CO2 33.9 H VBG O2 Saturation 52.1 VBG Base Excess 5.3 H Assessment and Plan (1) Malignant hypertension Current visit: Yes Status: Acute (2) Pleural effusion Current visit: Yes Status: Acute (3) Ground glass opacity present on imaging of lung Current visit: Yes Status: Acute (4) Respiratory distress Current visit: Yes Status: Resolved (5) Morbid obesity Current visit: Yes Status: Acute Assessment and Plan: Assessment and Plan: (1) Malignant hypertension -BP better on Labetalol and Norvasc but still not controlled -Increase Norvasc to 10mg daily (2) NSTEMI (non-ST elevated myocardial infarction) -HC shows 80% bid RCA. mild diffuse disease in LAD -Likely demand ischemia due to severe . -Plan for evaluation by CV surgery for AVR/Bypass in the future -Could be a candidate for PCI of RCA and TAVR if she is unable to ambulate satisfactorily -Consult PT for ambulation (3) Morbid obesity -Would benefit from diet and exercise program prior to CV surgery (4) diabetes -SSI (5) PAF -On amiodarone -currently in SR -[id number] = 5 -Would benefit from OAC, will defer to cardiology (6) Respiratory distress-resolved -On RA (7) HLP -repeat fasting lipid -Would benefit from Statin-will order (8) One of 2 Blood cultures + for Staph aureus -Will repeat bl cultures today (9) Prophylaxis -Currently on Lovenox 40mg daily -PPI Will transfer to floor today, increase activity. Follow pressures. - Physician Narrative Narrative: Date: 11/03/17 Time: 0934 Hospital Course Summary Disclaimer: The visit summary below is not to be considered part of the above Progress Note.
[2017-11-03] MEDS ORDERED: AMLODIPINE 5 MG TABLET PO ONE (10:00)
[2017-11-03] MEDS: MAGNESIUM SULFATE 1gm PREMIX 1 GM/100 ML BAG IV SCH ×2 (12:56→14:07)
[2017-11-03] MEDS: ENOXAPARIN 40 MG/0.4 ML INJECTION SQ SCH (16:42)
[2017-11-03] MEDS: FUROSEMIDE 40 MG TABLET PO SCH (16:42)
[2017-11-03 16:50] VITALS: BMI 50.1
--- NOTE | 2017-11-03 21:35 | Cardiology Progress Note ---
<Radha Cox - Last Filed: 11/04/17 14:07> Subjective Principal diagnosis: CAD, Interval history: Pt is seen in f/u of CAD, and malignant hypertension. She has been moved from the ICU to the floor this AM. BP is up this am, RN reports attending MD increased amlodipine dose from 5mg to 10mg daily. The patient denies chest pain , palpitations, dizziness, near syncope, headache or dyspnea. Many family members present at bedside with questions regarding impending transfer and surgical consult, discussed pt case and further treatments plans at length. Exam Vital signs: Temperature 99.2 F 11/03/17 20:24 Pulse Rate 83 11/03/17 20:24 Respiratory Rate 18 11/03/17 20:24 Blood Pressure 137/77 11/03/17 20:24 Pulse Oximetry 90 11/03/17 20:24 Inpatient Medications: Generic Name Dose Route Start Last Admin Trade Name Freq PRN Reason Stop Dose Admin Acetaminophen 325 - 650 mg 11/02/17 16:33 Tylenol PO Q5H PRN Pain Acetaminophen/Butalbital/Caffeine 2 each 11/01/17 11:18 Fioricet PO Q4H PRN Headache Al Hydroxide/Mg Hydroxide 30 ml 11/02/17 16:33 11/03/17 15:01 Maalox Plus PO 30 ml Q3H PRN Administration Indigestion Amiodarone HCl 200 mg 11/02/17 17:00 11/03/17 08:55 Pacerone PO 200 mg DAILY ERICA Administration Amlodipine Besylate 10 mg 11/04/17 09:00 Norvasc PO DAILY ERICA Atropine Sulfate 0.5 mg 11/02/17 16:33 Atropine IVP Q5M PRN Bradycardia Bisacodyl 5 - 10 mg 11/02/17 16:33 Dulcolax PO DAILY PRN Constipation Bisacodyl 10 mg 11/02/17 16:33 Dulcolax RECTALLY DAILY PRN Constipation Carisoprodol 350 mg 11/01/17 16:06 11/02/17 16:38 Soma PO 350 mg TID PRN Administration Enoxaparin Sodium 40 mg 11/02/17 17:00 11/03/17 16:42 Lovenox SQ 40 mg DAILY@1700 ERICA Administration Furosemide 40 mg 11/03/17 17:00 11/03/17 16:42 Lasix PO 40 mg 0900,1700 ERICA Administration Insulin Aspart 2 - 8 unit 11/01/17 16:09 11/03/17 21:03 Novolog SQ 2 unit SS PRN Administration Hyperglycemia Protocol Labetalol HCl 200 mg 11/01/17 21:00 11/03/17 21:02 Normodyne PO 200 mg BID ERICA Administration Lorazepam 0.5 - 1 mg 11/02/17 16:33 Ativan PO Q4H PRN Anxiety Lorazepam 0.5 - 1 mg 11/02/17 16:33 Ativan Inj IVP Q4H PRN Anxiety Magnesium Hydroxide 30 ml 11/02/17 16:33 Mom PO DAILY PRN Constipation Metoclopramide HCl 5 - 10 mg 11/02/17 16:33 Reglan IVP Q6H PRN Nausea &/or vomiting Nitroglycerin 0.4 mg 11/01/17 06:21 11/01/17 06:20 Nitrostat SL 0.4 mg Q5MIN3 PRN Administration Chest pain Nitroglycerin 0.4 mg 11/02/17 16:33 Nitrostat SL Q5MIN3 PRN Angina Ondansetron HCl 4 mg 11/02/17 16:33 Zofran IVP Q6H PRN Nausea &/or vomiting Pantoprazole Sodium 40 mg 11/04/17 06:30 Protonix Tab PO ACB ERICA Potassium Chloride 20 meq 11/01/17 17:30 11/03/17 16:42 K-Dur 20 Meq Tablet PO 20 meq TIDWM ERICA Administration Promethazine HCl 12.5 - 25 mg 11/02/17 16:33 Phenergan Inj IVP Q6H PRN Nausea &/or vomiting Promethazine HCl 12.5 mg 11/02/17 10:38 11/02/17 10:30 Phenergan Inj IVP 12.5 mg Q6H PRN Administration Sodium Chloride 10 - 80 ml 11/01/17 06:21 11/03/17 09:42 Iv Flush IVF 10 ml PRN PRN Administration Flushing Tramadol/Acetaminophen 1 tab 11/01/17 16:11 11/03/17 21:02 Ultracet PO 1 tab Q4H PRN Administration Pain Zolpidem Tartrate 5 mg 11/01/17 20:44 11/01/17 21:08 Ambien PO 5 mg HS PRN Administration Insomnia Discontinued Medications Generic Name Dose Route Start Last Admin Trade Name Yarielq PRN Reason Stop Dose Admin Amlodipine Besylate 5 mg 11/01/17 14:15 11/03/17 08:56 Norvasc PO 5 mg DAILY ERICA Administration Amlodipine Besylate 5 mg 11/03/17 10:00 11/03/17 11:22 Norvasc PO 11/03/17 10:01 5 mg O ONE Administration Aspirin 324 mg 11/01/17 06:21 11/01/17 06:18 Asa PO 11/01/17 06:22 324 mg O ONE Administration Furosemide 40 mg 11/01/17 17:00 11/02/17 08:11 Lasix IVP 40 mg Q8HR ERICA Administration Furosemide 80 mg 11/02/17 17:00 11/03/17 09:41 Lasix IVP 11/03/17 09:01 80 mg Q8HR ERICA Administration Heparin Sodium (Beef Lung) 4,000 unit 11/01/17 06:22 11/01/17 06:30 Heparin Bolus IVP 11/01/17 06:23 4,000 unit O ONE Administration Heparin Sodium (Beef Lung) 1,000 unit 11/01/17 16:07 11/01/17 16:47 Heparin Bolus IV 11/01/17 16:08 1,000 unit O ONE Administration Heparin Sodium (Porcine) 20,000 unit in 500 mls @ 30 mls/hr 11/01/17 06:30 06:00 Heparin Drip IV 1,200 unit/hr .[id number] ERICA 30 mls/hr Protocol Titration 1,200 UNIT/HR Sodium Chloride 1,000 mls @ 1,000 mls/hr 11/01/17 06:21 11/01/17 08:16 Normal Saline IV 11/01/17 07:20 Infused .Q1H ONE Infusion Labetalol HCl 200 mg/ Sodium 200 mls @ 60 mls/hr 11/01/17 07:28 Chloride IV .Q3H20M PRN Protocol 1 MG/MIN Cefepime HCl 1 gm/ Sodium 100 mls @ 200 mls/hr 11/01/17 07:38 11/01/17 09:13 Chloride IV 11/01/17 08:07 Infused O ONE Infusion Amiodarone HCl 900 mg/ Sodium 500 mls @ 16.66 mls/hr 11/01/17 20:30 11/02/17 06:00 Chloride IV 0.5 mg/min .Q24H ERICA 16.7 mls/hr 0.5 MG/MIN Infusion Amiodarone HCl 450 mg/ Sodium 250 mls @ 33.33 mls/hr 11/01/17 14:30 11/01/17 21:10 Chloride IV 11/01/17 20:30 Infused .Q7H31M ERICA Infusion 1 MG/MIN Amiodarone HCl 150 mg/ Sodium 103 mls @ 618 mls/hr 11/01/17 14:17 11/01/17 15 :03 Chloride IV 11/01/17 14:26 Infused O ONE Infusion Magnesium Sulfate/Dextrose 1 gm in 100 mls @ 100 mls/hr 11/03/17 12:06 15:25 Mag Sulf 1gm Premix IV 11/03/17 14:05 Infused Q1H ERICA Infusion Labetalol HCl 5 mg 11/01/17 07:25 Trandate IVP 11/01/17 07:26 O ONE Labetalol HCl 20 mg 11/01/17 07:30 11/01/17 07:31 Trandate IVP 11/01/17 07:31 20 mg O ONE Administration Labetalol HCl 5 mg 11/01/17 11:16 11/01/17 12:53 Trandate IVP 5 mg O PRN Administration SBP>180 Labetalol HCl 100 mg 11/01/17 11:45 11/01/17 12:05 Normodyne PO 100 mg BID ERICA Administration Labetalol HCl 100 mg 11/01/17 14:12 11/01/17 14:12 Normodyne PO 11/01/17 14:13 100 mg O ONE Administration Morphine Sulfate 2 - 5 mg 11/01/17 09:58 11/02/17 16:40 Morphine Sulfate Inj IVP 5 mg Q5M PRN Administration Chest pain Pantoprazole Sodium 40 mg 11/03/17 09:00 11/03/17 08:56 Protonix Iv IVP 40 mg DAILY ERICA Administration - Constitutional no acute distress, morbidly obese - Routine HEENT Exam Head: Present: normocephalic, atraumatic - Routine Neck Exam Absent: JVD, carotid bruit - Routine Respiratory Exam Present: CTA bilaterally - Routine Cardiovascular Exam Present: RRR, murmur (II/IV). Absent: JVD - Routine Abdominal Exam Present: normoactive bowel sounds, non tender - Routine Extremities Exam Present: no edema, pulses intact, normal capillary refill - Routine Back/Spine/Pelvis Exam Back/Spine: Present: paraspinal tenderness (low mobility due to back pain) - Routine Skin Exam Present: intact - Routine Neurological Exam Present: alert, oriented X3 - Routine Psychiatric Exam Present: normal affect, normal thought process, cooperative - Urinary Catheter Management Urethral Cath placed during this visit: yes, but has since been removed by the nurse Insertion date: 11/01/17 Removal date: 11/03/17 Removal time: 16:25 Results 11/04/17 04:28 11/04/17 04:28 CBC 11/03/17 Range/Units 04:56 WBC 8.7 D (4.5-11.0) T/MM3 RBC 3.90 L (4.00-5.20) M/MM3 Hgb 10.7 L D (12-16) GM/DL Hct 34.7 L D (36-46) % Plt Count 231 (130-400) T/MM3 Neut # (Auto) 5.3 (1.8-7.7) T/MM3 Lymph # (Auto) 2.1 (1-4.8) T/MM3 Garrard # (Auto) 1.0 H (0-0.8) T/MM3 Eos # (Auto) 0.3 (0-0.5) T/MM3 Baso # (Auto) 0.0 (0-0.2) T/MM3 Comprehensive Metabolic Panel 11/03/17 Range/Units 04:56 Sodium 143 (134-144) MEQ/L Potassium 3.8 (3.6-5) MEQ/L Chloride 98 D (98-107) MEQ/L Carbon Dioxide 35 H D (22-30) MEQ/L BUN 12.0 (7-17) MG/DL Creatinine 1.0 (0.7-1.2) mg/dL Glucose 173 H (65-110) MG/DL Calcium 9.2 (8.4-10.2) MG/DL Intake and Output 11/03/17 11/03/17 11/03/17 06:59 14:59 22:59 Intake Total 700 / 700 100 / 100 Output Total 1984 650 / 650 650 / 650 Balance -1984 50 / 50 -550 / -550 Intake: IV 100 / 100 100 / 100 MAGNESIUM SULFATE 1gm PREMIX 1 100 / 100 100 / 100 gm In 100 ml @ 100 mls/hr IV Q1H [facility] Rx#:[id number] Oral 600 / 600 Output: Urine 650 / 650 Urine Amount (Catheter) 1984 650 / 650 Other: Urine Appearance Clear Clear Clear Urine Color Pale Pale Yellow Yellow Yellow Urine Odor Normal Stool Color Brown Brown Stool Consistency Formed Dry and Hard Formed Size of Bowel Movement Small Small # Voids 1 Weight 122.4 kg 124.3 kg Patient Weight 11/04/17 07:59 Weight 124.3 kg Laboratory Results - last 48 hr 11/02/17 11/02/17 11/02/17 13:05 15:09 17:50 WBC RBC Hgb Hct MCV MCH MCHC RDW Std Deviation Plt Count MPV Immature Gran % (Auto) Neut % (Auto) Lymph % (Auto) [place]arrard % (Auto) Eos % (Auto) Baso % (Auto) Neut # (Auto) Lymph # (Auto) [place]ard # (Auto) Eos # (Auto) Baso # (Auto) Abs Immat Gran (auto) Sample Site [facility] VBG pH 7.361 VBG pCO2 56.8 H VBG pO2 29.6 L VBG HCO3 32.2 H VBG Total CO2 33.9 H VBG O2 Saturation 52.1 VBG Base Excess 5.3 H Turbidity Sodium Potassium Chloride Carbon Dioxide Anion Gap BUN Creatinine GFR Calculation BUN/Creatinine Ratio Glucose Glucometer 149 Calculated Osmolality Calcium Magnesium Icterus Index Troponin I 0.786 H Specimen Hemolysis < 15 11/02/17 11/03/17 11/03/17 20:58 04:56 04:56 WBC 8.7 D RBC 3.90 L Hgb 10.7 L D Hct 34.7 L D MCV 89.0 MCH 27.4 MCHC 30.8 L RDW Std Deviation 49.3 Plt Count 231 MPV 12.2 Immature Gran % (Auto) 0.1 Neut % (Auto) 61.1 Lymph % (Auto) 23.9 Garrard % (Auto) 11.1 H Eos % (Auto) 3.6 Baso % (Auto) 0.2 Neut # (Auto) 5.3 Lymph # (Auto) 2.1 Garrard # (Auto) 1.0 H Eos # (Auto) 0.3 Baso # (Auto) 0.0 Abs Immat Gran (auto) 0.01 Sample Site VBG pH VBG pCO2 VBG pO2 VBG HCO3 VBG Total CO2 VBG O2 Saturation VBG Base Excess Turbidity < 20 Sodium 143 Potassium 3.8 Chloride 98 D Carbon Dioxide 35 H D Anion Gap 10 BUN 12.0 Creatinine 1.0 GFR Calculation 55 BUN/Creatinine Ratio 12 Glucose 173 H Glucometer 216 Calculated Osmolality 279 Calcium 9.2 Magnesium Icterus Index < 2 Troponin I Specimen Hemolysis < 15 11/03/17 11/03/17 11/03/17 06:38 10:34 14:56 WBC RBC Hgb Hct MCV MCH MCHC RDW Std Deviation Plt Count MPV Immature Gran % (Auto) Neut % (Auto) Lymph % (Auto) Garrard % (Auto) Eos % (Auto) Baso % (Auto) Neut # (Auto) Lymph # (Auto) G[place]ard # (Auto) Eos # (Auto) Baso # (Auto) Abs Immat Gran (auto) Sample Site VBG pH VBG pCO2 VBG pO2 VBG HCO3 VBG Total CO2 VBG O2 Saturation VBG Base Excess Turbidity Sodium Potassium Chloride Carbon Dioxide Anion Gap BUN Creatinine GFR Calculation BUN/Creatinine Ratio Glucose Glucometer 168 274 263 Calculated Osmolality Calcium Magnesium Icterus Index Troponin I Specimen Hemolysis 11/03/17 11/04/17 11/04/17 20:37 04:28 04:28 WBC 9.0 RBC 4.23 Hgb 11.6 L Hct 36.6 MCV 86.5 MCH 27.4 MCHC 31.7 RDW Std Deviation 48.1 Plt Count 222 MPV 12.3 Immature Gran % (Auto) 0.2 Neut % (Auto) 60.8 Lymph % (Auto) 22.0 L [place]ard % (Auto) 13.0 H Eos % (Auto) 3.8 Baso % (Auto) 0.2 Neut # (Auto) 5.5 Lymph # (Auto) 2.0 Garrard # (Auto) 1.2 H Eos # (Auto) 0.3 Baso # (Auto) 0.0 Abs Immat Gran (auto) 0.02 Sample Site VBG pH VBG pCO2 VBG pO2 VBG HCO3 VBG Total CO2 VBG O2 Saturation VBG Base Excess Turbidity < 20 Sodium 142 Potassium 4.2 Chloride 97 L Carbon Dioxide 32 H Anion Gap 13 BUN 15.0 Creatinine 1.0 GFR Calculation 55 BUN/Creatinine Ratio 15 Glucose 186 H Glucometer 173 Calculated Osmolality 279 Calcium 9.8 Magnesium 1.7 Icterus Index < 2 Troponin I Specimen Hemolysis 34 H 11/04/17 11/04/17 06:31 11:24 WBC RBC Hgb Hct MCV MCH MCHC RDW Std Deviation Plt Count MPV Immature Gran % (Auto) Neut % (Auto) Lymph % (Auto) Garrard % (Auto) Eos % (Auto) Baso % (Auto) Neut # (Auto) Lymph # (Auto) Garrard # (Auto) Eos # (Auto) Baso # (Auto) Abs Immat Gran (auto) Sample Site VBG pH VBG pCO2 VBG pO2 VBG HCO3 VBG Total CO2 VBG O2 Saturation VBG Base Excess Turbidity Sodium Potassium Chloride Carbon Dioxide Anion Gap BUN Creatinine GFR Calculation BUN/Creatinine Ratio Glucose Glucometer 183 288 Calculated Osmolality Calcium Magnesium Icterus Index Troponin I Specimen Hemolysis - Imaging and Cardiology Echo: report reviewed Imaging & Cardiology Narrative: 11/02/17 Cardiac Cath: CORONARY ANGIOGRAPHY Left main was free of significant lesions and bifurcated into left anterior descending and left circumflex arteries. Left anterior descending artery had diffuse disease of up to about 30% but no hemodynamically significant lesions in LAD or diagonals. Left circumflex artery was free of significant lesions. Obtuse marginal had about 30% stenosis. Left coronary system had mild to moderate calcification. Right coronary artery had mid 80% stenosis. IMPRESSION 1. Normal LV systolic function with ejection fraction of about 65%. 2. Aortic stenosis with a valve area of 0.7-0.8 cm2. 3. Coronary artery disease as described above. 4. Moderate elevation in right heart pressures. 5. No evidence of renal artery stenosis. 6. Successful Myn[employer] deployment for hemostasis. PLAN Will increase diuretics to improve her symptoms and pulmonary capillary wedge pressure. Meanwhile, will transfer her in the near future for cardiovascular surgical consultation for aortic valve replacement and coronary artery bypass graft. Will continue medical management for hypertension. Assessment and Plan - Assessment and Plan (1) CAD (coronary artery disease), [place] coronary artery Status: Acute (2) Aortic stenosis, severe Status: Acute (3) Malignant hypertension Status: Acute (4) NSTEMI (non-ST elevated myocardial infarction) Status: Acute (5) Atrial fibrillation with RVR Status: Acute - Assessment and Plan NSTEMI: Elevated Troponin: 1) 0.042, 2)0.089, 3) 1.140 - Continue to trend - Heparin drip - NPO after breakfast for LHC in afternoon - Denies chest pain, however is diabetic AFib RVR: self converted, symptomatic, reports palpitations - 2D echo: Normal LV systolic function with ejection fraction of 65%, Mild concentric left ventricular hypertrophy, Mitral annulus calcification with moderate mitral regurgitation, Moderate aortic stenosis with a valve area of 1.14 cm2, Mild tricuspid regurgitation with estimated pulmonary artery systolic pressure of 34, Mild pulmonary insufficiency. - Lasix 40mg IV Q8H - Amiodarone bolus and drip for antiarrhythmic therapy - Continue to monitor cardiac telemetry - EKG in am - TSH and Mag HTN: Increase Labetalol to 200mg po BID - Add Amlodipine 5mg daily - Renal duplex - UA NSTEMI CAD, CABG surgical consult pending AFib RVR MR Malignant HTN 11/03/17 Pt underwent a cardiac cath 11/02/17 findings as above. RCA 80% stenosis, high pulmonary capillary wedge pressures and . Plan is to remain hospitalized, manage bp and monitor pt due to , CAD; transfer to facility capable of higher level of intervention for Surgical consult for Aortic valve replacement and CABG. No ASA due to possible impending surgical intervention. Statin therapy, atorvastatin 40mg daily. No TERRY due to concurrent . Remain on Amio 200mg daily for afib control, maintaining SR on tele, rate 70- 90. Lovenox. TSH wnl. ECG this AM SR, septal NV, QTc .394 Lasix increased to 40mg bid for right failure management, pt tolerating well. Creatinine stable at 1 today, lytes stable. Maintaining SR on tele. Continue amiodarone 200mg daily. SBP up to 160's today, attending increased amlodipine from 5 to 10mg daily, with an additional 5mg given today. In addition to labetolol 200 mg bid. Monitor. Hospital Course Summary Disclaimer: The visit summary below is not to be considered part of the above Progress Note. <Ritesh Stack - Last Filed: 11/07/17 07:48> Exam Vital signs: Temperature 97 F 11/05/17 12:00 Pulse Rate 77 11/05/17 12:00 Respiratory Rate 20 11/05/17 12:00 Blood Pressure 117/73 11/05/17 12:00 Pulse Oximetry 96 11/05/17 12:00 Inpatient Medications: Discontinued Medications Generic Name Dose Route Start Last Admin Trade Name Laurie PRN Reason Stop Dose Admin Acetaminophen 325 - 650 mg 11/02/17 16:33 Tylenol PO Q5H PRN Pain Acetaminophen/Butalbital/Caffeine 2 each 11/01/17 11:18 Fioricet PO Q4H PRN Headache Al Hydroxide/Mg Hydroxide 30 ml 11/02/17 16:33 11/03/17 15:01 Maalox Plus PO 30 ml Q3H PRN Administration Indigestion Amiodarone HCl 200 mg 11/02/17 17:00 11/05/17 08:39 Pacerone PO 200 mg DAILY ERICA Administration Amlodipine Besylate 5 mg 11/01/17 14:15 11/03/17 08:56 Norvasc PO 5 mg DAILY ERICA Administration Amlodipine Besylate 10 mg 11/04/17 09:00 11/05/17 08:41 Norvasc PO 10 mg DAILY ERICA Administration Amlodipine Besylate 5 mg 11/03/17 10:00 11/03/17 11:22 Norvasc PO 11/03/17 10:01 5 mg O ONE Administration Aspirin 324 mg 11/01/17 06:21 11/01/17 06:18 Asa PO 11/01/17 06:22 324 mg O ONE Administration Atorvastatin Calcium 20 mg 11/04/17 21:00 11/04/17 21:29 Lipitor PO 20 mg HS ERICA Administration Atropine Sulfate 0.5 mg 11/02/17 16:33 Atropine IVP Q5M PRN Bradycardia Bisacodyl 5 - 10 mg 11/02/17 16:33 Dulcolax PO DAILY PRN Constipation Bisacodyl 10 mg 11/02/17 16:33 Dulcolax RECTALLY DAILY PRN Constipation Carisoprodol 350 mg 11/01/17 16:06 11/05/17 03:19 Soma PO 350 mg TID PRN Administration Enoxaparin Sodium 40 mg 11/02/17 17:00 11/04/17 17:25 Lovenox SQ 40 mg DAILY@1700 ERICA Administration Furosemide 40 mg 11/01/17 17:00 11/02/17 08:11 Lasix IVP 40 mg Q8HR ERICA Administration Furosemide 40 mg 11/03/17 17:00 11/05/17 08:00 Lasix PO 40 mg 0900,1700 ERICA Administration Furosemide 80 mg 11/02/17 17:00 11/03/17 09:41 Lasix IVP 11/03/17 09:01 80 mg Q8HR ERICA Administration Heparin Sodium (Beef Lung) 4,000 unit 11/01/17 06:22 11/01/17 06:30 Heparin Bolus IVP 11/01/17 06:23 4,000 unit O ONE Administration Heparin Sodium (Beef Lung) 1,000 unit 11/01/17 16:07 11/01/17 16:47 Heparin Bolus IV 11/01/17 16:08 1,000 unit O ONE Administration Heparin Sodium (Porcine) 20,000 unit in 500 mls @ 30 mls/hr 11/01/17 06:30 00:57 Heparin Drip IV Not Given .[id number] ERICA Protocol 1,200 UNIT/HR Sodium Chloride 1,000 mls @ 1,000 mls/hr 11/01/17 06:21 11/01/17 08:16 Normal Saline IV 11/01/17 07:20 Infused .Q1H ONE Infusion Labetalol HCl 200 mg/ Sodium 200 mls @ 60 mls/hr 11/01/17 07:28 Chloride IV .Q3H20M PRN Protocol 1 MG/MIN Cefepime HCl 1 gm/ Sodium 100 mls @ 200 mls/hr 11/01/17 07:38 11/01/17 09:13 Chloride IV 11/01/17 08:07 Infused O ONE Infusion Amiodarone HCl 900 mg/ Sodium 500 mls @ 16.66 mls/hr 11/01/17 20:30 11/02/17 06:00 Chloride IV 0.5 mg/min .Q24H ERICA 16.7 mls/hr 0.5 MG/MIN Infusion Amiodarone HCl 450 mg/ Sodium 250 mls @ 33.33 mls/hr 11/01/17 14:30 11/01/17 21:10 Chloride IV 11/01/17 20:30 Infused .Q7H31M ERICA Infusion 1 MG/MIN Amiodarone HCl 150 mg/ Sodium 103 mls @ 618 mls/hr 11/01/17 14:17 11/01/17 15 :03 Chloride IV 11/01/17 14:26 Infused O ONE Infusion Magnesium Sulfate/Dextrose 1 gm in 100 mls @ 100 mls/hr 11/03/17 12:06 15:25 Mag Sulf 1gm Premix IV 11/03/17 14:05 Infused Q1H ERICA Infusion Vancomycin HCl 1,000 mg/ 250 mls @ 250 mls/hr 11/04/17 16:38 11/04/17 18:26 Sodium Chloride IV 11/04/17 16:39 Infused O ONE Infusion Vancomycin HCl 1,500 mg/ 500 mls @ 250 mls/hr 11/05/17 09:00 11/05/17 11:40 Sodium Chloride IV Infused Q12H ERICA Infusion Insulin Aspart 2 - 8 unit 11/01/17 16:09 11/05/17 11:13 Novolog SQ 5 unit SS PRN Administration Hyperglycemia Protocol Labetalol HCl 5 mg 11/01/17 07:25 Trandate IVP 11/01/17 07:26 O ONE Labetalol HCl 20 mg 11/01/17 07:30 11/01/17 07:31 Trandate IVP 11/01/17 07:31 20 mg O ONE Administration Labetalol HCl 5 mg 11/01/17 11:16 11/01/17 12:53 Trandate IVP 5 mg O PRN Administration SBP>180 Labetalol HCl 100 mg 11/01/17 11:45 11/01/17 12:05 Normodyne PO 100 mg BID ERICA Administration Labetalol HCl 100 mg 11/01/17 14:12 11/01/17 14:12 Normodyne PO 11/01/17 14:13 100 mg O ONE Administration Labetalol HCl 200 mg 11/01/17 21:00 11/04/17 08:55 Normodyne PO 200 mg BID ERICA Administration Labetalol HCl 300 mg 11/04/17 12:47 11/05/17 08:40 Normodyne PO 300 mg BID ERICA Administration Lorazepam 0.5 - 1 mg 11/02/17 16:33 Ativan PO Q4H PRN Anxiety Lorazepam 0.5 - 1 mg 11/02/17 16:33 Ativan Inj IVP Q4H PRN Anxiety Magnesium Hydroxide 30 ml 11/02/17 16:33 Mom PO DAILY PRN Constipation Metoclopramide HCl 5 - 10 mg 11/02/17 16:33 Reglan IVP Q6H PRN Nausea &/or vomiting Morphine Sulfate 2 - 5 mg 11/01/17 09:58 11/02/17 16:40 Morphine Sulfate Inj IVP 5 mg Q5M PRN Administration Chest pain Nitroglycerin 0.4 mg 11/01/17 06:21 11/01/17 06:20 Nitrostat SL 0.4 mg Q5MIN3 PRN Administration Chest pain Nitroglycerin 0.4 mg 11/02/17 16:33 Nitrostat SL Q5MIN3 PRN Angina Ondansetron HCl 4 mg 11/02/17 16:33 Zofran IVP Q6H PRN Nausea &/or vomiting Pantoprazole Sodium 40 mg 11/03/17 09:00 11/03/17 08:56 Protonix Iv IVP 40 mg DAILY ERICA Administration Pantoprazole Sodium 40 mg 11/04/17 06:30 11/05/17 06:16 Protonix Tab PO 40 mg ACB ERICA Administration Potassium Chloride 20 meq 11/01/17 17:30 11/05/17 12:56 K-Dur 20 Meq Tablet PO 20 meq TIDWM ERICA Administration Promethazine HCl 12.5 - 25 mg 11/02/17 16:33 Phenergan Inj IVP Q6H PRN Nausea &/or vomiting Promethazine HCl 12.5 mg 11/02/17 10:38 11/02/17 10:30 Phenergan Inj IVP 12.5 mg Q6H PRN Administration Sodium Chloride 10 - 80 ml 11/01/17 06:21 11/05/17 09:40 Iv Flush IVF 10 ml PRN PRN Administration Flushing Tramadol/Acetaminophen 1 tab 11/01/17 16:11 11/05/17 12:56 Ultracet PO 1 tab Q4H PRN Administration Pain Vancomycin HCl 1 each 11/04/17 16:39 11/04/17 17:25 Pharmacy Consult - Vancomycin MC 11/04/17 16:40 1 each O ONE Administration Zolpidem Tartrate 5 mg 11/01/17 20:44 11/04/17 21:29 Ambien PO 5 mg HS PRN Administration Insomnia - Urinary Catheter Management Urethral Cath placed during this visit: no Results 11/05/17 04:52 11/05/17 04:52 Assessment and Plan - Assessment and Plan (1) Malignant hypertension Status: Acute (2) NSTEMI (non-ST elevated myocardial infarction) Status: Acute (3) Atrial fibrillation with RVR Status: Acute (4) Aortic stenosis, severe Status: Acute (5) CAD (coronary artery disease), [place] coronary artery Status: Acute - Attestation Attestation Narrative: 11/07/17 07:47 Recommendation I agree with the above and I am involved in the formulation of the patient's plan of care. Hospital Course Summary Disclaimer: The visit summary below is not to be considered part of the above Progress Note.
[2017-11-04] MEDS: HEPARIN DRIP 20,000 UNIT/500 ML BAG IV SCH (00:57)
[2017-11-04] MEDS: TRAMADOL/APAP 37.5 MG/325 MG TABLET PO PRN ×4 (03:20→21:30)
[2017-11-04] MEDS: CARISOPRODOL 350 MG TABLET PO PRN ×2 (03:20→14:06)
[2017-11-04] MEDS: PANTOPRAZOLE 40 MG TABLET PO SCH (06:32)
[2017-11-04] MEDS: INSULIN ASPART 100unit/ml INJECTION SQ PRN ×3 (06:44→15:39)
[2017-11-04] MEDS: AMLODIPINE 10 MG TABLET PO SCH (08:55)
[2017-11-04] MEDS: LABETALOL 100 MG TABLET PO SCH ×2 (08:55→21:29)
[2017-11-04] MEDS: FUROSEMIDE 40 MG TABLET PO SCH ×2 (08:55→17:25)
[2017-11-04] MEDS: AMIODARONE 200 MG TABLET PO SCH (08:56)
--- NOTE | 2017-11-04 12:58 | Progress Note ---
- Date 11/04/17 Subjective: 67y/o female pt with VHD with aortic stenosis and mitral regurgitation, HTN, HLP , IBS, DM, PAF and h/o thoracic outlet syndrome presented to the ED with SOA. 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 They stopped at a local gas station and called for EMS. Pt states that she has had some dyspnea at rest for the last 3-4 days, but this became severe and disabling while driving this AM. Pt has never had sx like this before. Denies any CP or other sx besides air hunger. On initial evaluation in the ED, pt was tachypneic, tachy to 170s, and HTN to 270s/200s. Pt given 5mg of labetalol IV with decreased pressure (210s/140s) and decreased rate (140s). No dynamic changes on EKG, but T inversion in aVR. On presentation, pts SaO2 had improved; only required 6L by NC to maintain sat of 92%. She did have elevated troponin which peaked at 1.8. She underwent HC by Dr. Stack and was found to have significant stenosis in the mid RCA (80%) as well as severe (NICHOLAS 0.7-0.8cm2). No Renal artery stenosis. Elevated PCWP. She was diuresed. The plan for her is to be evaluated by CV surgery for possible AVR and Bypass. Her EF is 65%. Today, she is up in the chair. Lots of family in room. Continues to complain of back and left hip pain. She denies feeling SOA. She has not been ambulating much. She denies BLEVINS, lightheadedness or dizziness. She denies CP or palp. She denies N/V/D/C. No edema. Objective Vital signs: Temperature 96.6 F L 11/04/17 07:50 Pulse Rate 72 11/04/17 08:08 Respiratory Rate 20 11/04/17 07:50 Blood Pressure 166/78 H 11/04/17 07:50 Pulse Oximetry 91 11/04/17 07:50 Rhythm: Normal Sinus Rhythm Height/Weight/BMI: Height 1.57 m Weight 122.5 kg Body Mass Index 50.1 Comments: Gen: alert and oriented. NAD. Pleasant and conversive Skin: warm and dry. HEENT: NC/AT PERRL, EOMI, sclera, lids and conjunctiva wnl. MMM. OP clear. Neck: supple, No JVD, Carotids 2+ with murmur radiating bilaterally Lungs: Clear. No rales, rhonchi or wheezes. Heart: regular. 3/6 DIANA radiating to bilateral carotids Abdomen: soft. NT/ND. +BS. MS: good strength and ROM. Trace non pitting edema. Neuro: no focal deficit Psy: appropriate mood and affect. Results - Labs CBC & Chem 7: 11/04/17 04:28 11/04/17 04:28 Microbiology Results: Microbiology 11/04/17 10:50 Peripheral/Iv Start Blood Culture - Preliminary Culture Initiated - Results Pending 11/04/17 10:50 Peripheral/Iv Start Blood Culture - Preliminary Culture Initiated - Results Pending - ABG Interpretation ABG results: 11/02/17 15:09 VBG pH 7.361 VBG pCO2 56.8 H VBG pO2 29.6 L VBG HCO3 32.2 H VBG Total CO2 33.9 H VBG O2 Saturation 52.1 VBG Base Excess 5.3 H Assessment and Plan (1) Malignant hypertension Current visit: Yes Status: Acute (2) Pleural effusion Current visit: Yes Status: Acute (3) Ground glass opacity present on imaging of lung Current visit: Yes Status: Acute (4) Respiratory distress Current visit: Yes Status: Resolved (5) Morbid obesity Current visit: Yes Status: Acute Assessment and Plan: Assessment and Plan: (1) Malignant hypertension -BP better on Labetalol and Norvasc 10mg. -Increase Labetalol to 300mg BID and watch HR (2) NSTEMI (non-ST elevated myocardial infarction) -HC shows 80% bid RCA. mild diffuse disease in LAD -Likely demand ischemia due to severe . -Plan for evaluation by CV surgery for AVR/Bypass in the future -Could be a candidate for PCI of RCA and TAVR if she is unable to ambulate satisfactorily -Consult PT for ambulation (3) Morbid obesity -Would benefit from diet and exercise program prior to CV surgery (4) diabetes -SSI (5) PAF -On amiodarone -currently in SR -[id number] = 5 -Would benefit from OAC once the surgery issue is all resolved. (6) Respiratory distress-resolved -On RA (7) HLP -repeat fasting lipid -Would benefit from Statin-will order (8) One of 2 Blood cultures + for Staph aureus -Will repeat bl cultures today (9) Prophylaxis -Currently on Lovenox 40mg daily -PPI Family tells me that the plan was to center by ambulance to [place] for evaluation of cardiothoracic surgery. At this point I think she would be stable to be discharged to home in the near future and could probably be seen as an outpatient. We will leave that up to the team tomorrow that is going to see her. She's actually doing quite well. She does need to be ambulating more and I have reiterated that today. - Physician Narrative Narrative: Date: 11/04/17 Time: 1244 Hospital Course Summary Disclaimer: The visit summary below is not to be considered part of the above Progress Note.
--- NOTE | 2017-11-04 14:11 | Cardiology Progress Note ---
<Radha Cox L - Last Filed: 11/04/17 14:12> Subjective Principal diagnosis: CAD, Interval history: Pt is seen in f/u of CAD, and malignant hypertension. The patient denies chest pain, palpitations, dizziness, near syncope, headache or dyspnea. We discussed further she does very little ambulation due to severe back pain and debility. Exam Vital signs: Temperature 96.6 F L 11/04/17 07:50 Pulse Rate 94 11/04/17 12:00 Respiratory Rate 18 11/04/17 12:00 Blood Pressure 135/75 11/04/17 12:00 Pulse Oximetry 98 11/04/17 12:00 Inpatient Medications: Generic Name Dose Route Start Last Admin Trade Name Freq PRN Reason Stop Dose Admin Acetaminophen 325 - 650 mg 11/02/17 16:33 Tylenol PO Q5H PRN Pain Acetaminophen/Butalbital/Caffeine 2 each 11/01/17 11:18 Fioricet PO Q4H PRN Headache Al Hydroxide/Mg Hydroxide 30 ml 11/02/17 16:33 11/03/17 15:01 Maalox Plus PO 30 ml Q3H PRN Administration Indigestion Amiodarone HCl 200 mg 11/02/17 17:00 11/04/17 08:56 Pacerone PO 200 mg DAILY ERICA Administration Amlodipine Besylate 10 mg 11/04/17 09:00 11/04/17 08:55 Norvasc PO 10 mg DAILY ERICA Administration Atorvastatin Calcium 20 mg 11/04/17 21:00 Lipitor PO HS ERICA Atropine Sulfate 0.5 mg 11/02/17 16:33 Atropine IVP Q5M PRN Bradycardia Bisacodyl 5 - 10 mg 11/02/17 16:33 Dulcolax PO DAILY PRN Constipation Bisacodyl 10 mg 11/02/17 16:33 Dulcolax RECTALLY DAILY PRN Constipation Carisoprodol 350 mg 11/01/17 16:06 11/04/17 14:06 Soma PO 350 mg TID PRN Administration Enoxaparin Sodium 40 mg 11/02/17 17:00 11/03/17 16:42 Lovenox SQ 40 mg DAILY@1700 ERICA Administration Furosemide 40 mg 11/03/17 17:00 11/04/17 08:55 Lasix PO 40 mg 0900,1700 ERICA Administration Insulin Aspart 2 - 8 unit 11/01/17 16:09 11/04/17 12:15 Novolog SQ 5 unit SS PRN Administration Hyperglycemia Protocol Labetalol HCl 300 mg 11/04/17 12:47 Normodyne PO BID ERICA Lorazepam 0.5 - 1 mg 11/02/17 16:33 Ativan PO Q4H PRN Anxiety Lorazepam 0.5 - 1 mg 11/02/17 16:33 Ativan Inj IVP Q4H PRN Anxiety Magnesium Hydroxide 30 ml 11/02/17 16:33 Mom PO DAILY PRN Constipation Metoclopramide HCl 5 - 10 mg 11/02/17 16:33 Reglan IVP Q6H PRN Nausea &/or vomiting Nitroglycerin 0.4 mg 11/01/17 06:21 11/01/17 06:20 Nitrostat SL 0.4 mg Q5MIN3 PRN Administration Chest pain Nitroglycerin 0.4 mg 11/02/17 16:33 Nitrostat SL Q5MIN3 PRN Angina Ondansetron HCl 4 mg 11/02/17 16:33 Zofran IVP Q6H PRN Nausea &/or vomiting Pantoprazole Sodium 40 mg 11/04/17 06:30 11/04/17 06:32 Protonix Tab PO 40 mg ACB ERICA Administration Potassium Chloride 20 meq 11/01/17 17:30 11/04/17 12:15 K-Dur 20 Meq Tablet PO 20 meq TIDWM ERICA Administration Promethazine HCl 12.5 - 25 mg 11/02/17 16:33 Phenergan Inj IVP Q6H PRN Nausea &/or vomiting Promethazine HCl 12.5 mg 11/02/17 10:38 11/02/17 10:30 Phenergan Inj IVP 12.5 mg Q6H PRN Administration Sodium Chloride 10 - 80 ml 11/01/17 06:21 11/03/17 09:42 Iv Flush IVF 10 ml PRN PRN Administration Flushing Tramadol/Acetaminophen 1 tab 11/01/17 16:11 11/04/17 14:06 Ultracet PO 1 tab Q4H PRN Administration Pain Zolpidem Tartrate 5 mg 11/01/17 20:44 11/01/17 21:08 Ambien PO 5 mg HS PRN Administration Insomnia Discontinued Medications Generic Name Dose Route Start Last Admin Trade Name Freq PRN Reason Stop Dose Admin Amlodipine Besylate 5 mg 11/01/17 14:15 11/03/17 08:56 Norvasc PO 5 mg DAILY ERICA Administration Amlodipine Besylate 5 mg 11/03/17 10:00 11/03/17 11:22 Norvasc PO 11/03/17 10:01 5 mg O ONE Administration Aspirin 324 mg 11/01/17 06:21 11/01/17 06:18 Asa PO 11/01/17 06:22 324 mg O ONE Administration Furosemide 40 mg 11/01/17 17:00 11/02/17 08:11 Lasix IVP 40 mg Q8HR ERICA Administration Furosemide 80 mg 11/02/17 17:00 11/03/17 09:41 Lasix IVP 11/03/17 09:01 80 mg Q8HR ERICA Administration Heparin Sodium (Beef Lung) 4,000 unit 11/01/17 06:22 11/01/17 06:30 Heparin Bolus IVP 11/01/17 06:23 4,000 unit O ONE Administration Heparin Sodium (Beef Lung) 1,000 unit 11/01/17 16:07 11/01/17 16:47 Heparin Bolus IV 11/01/17 16:08 1,000 unit O ONE Administration Heparin Sodium (Porcine) 20,000 unit in 500 mls @ 30 mls/hr 11/01/17 06:30 00:57 Heparin Drip IV Not Given .[id number] ERICA Protocol 1,200 UNIT/HR Sodium Chloride 1,000 mls @ 1,000 mls/hr 11/01/17 06:21 11/01/17 08:16 Normal Saline IV 11/01/17 07:20 Infused .Q1H ONE Infusion Labetalol HCl 200 mg/ Sodium 200 mls @ 60 mls/hr 11/01/17 07:28 Chloride IV .Q3H20M PRN Protocol 1 MG/MIN Cefepime HCl 1 gm/ Sodium 100 mls @ 200 mls/hr 11/01/17 07:38 11/01/17 09:13 Chloride IV 11/01/17 08:07 Infused O ONE Infusion Amiodarone HCl 900 mg/ Sodium 500 mls @ 16.66 mls/hr 11/01/17 20:30 11/02/17 06:00 Chloride IV 0.5 mg/min .Q24H ERICA 16.7 mls/hr 0.5 MG/MIN Infusion Amiodarone HCl 450 mg/ Sodium 250 mls @ 33.33 mls/hr 11/01/17 14:30 11/01/17 21:10 Chloride IV 11/01/17 20:30 Infused .Q7H31M ERICA Infusion 1 MG/MIN Amiodarone HCl 150 mg/ Sodium 103 mls @ 618 mls/hr 11/01/17 14:17 11/01/17 15 :03 Chloride IV 11/01/17 14:26 Infused O ONE Infusion Magnesium Sulfate/Dextrose 1 gm in 100 mls @ 100 mls/hr 11/03/17 12:06 15:25 Mag Sulf 1gm Premix IV 11/03/17 14:05 Infused Q1H ERICA Infusion Labetalol HCl 5 mg 11/01/17 07:25 Trandate IVP 11/01/17 07:26 O ONE Labetalol HCl 20 mg 11/01/17 07:30 11/01/17 07:31 Trandate IVP 11/01/17 07:31 20 mg O ONE Administration Labetalol HCl 5 mg 11/01/17 11:16 11/01/17 12:53 Trandate IVP 5 mg O PRN Administration SBP>180 Labetalol HCl 100 mg 11/01/17 11:45 11/01/17 12:05 Normodyne PO 100 mg BID ERICA Administration Labetalol HCl 100 mg 11/01/17 14:12 11/01/17 14:12 Normodyne PO 11/01/17 14:13 100 mg O ONE Administration Labetalol HCl 200 mg 11/01/17 21:00 11/04/17 08:55 Normodyne PO 200 mg BID ERICA Administration Morphine Sulfate 2 - 5 mg 11/01/17 09:58 11/02/17 16:40 Morphine Sulfate Inj IVP 5 mg Q5M PRN Administration Chest pain Pantoprazole Sodium 40 mg 11/03/17 09:00 11/03/17 08:56 Protonix Iv IVP 40 mg DAILY ERICA Administration - Constitutional no acute distress, morbidly obese, cooperative - Routine HEENT Exam Head: Present: normocephalic, atraumatic Eye: Present: PERRL ENT: Present: mucous membranes moist - Routine Neck Exam Absent: JVD, carotid bruit - Routine Respiratory Exam Present: CTA bilaterally - Routine Cardiovascular Exam Present: RRR, murmur (III/IV) - Routine Abdominal Exam Present: soft, normoactive bowel sounds - Routine Extremities Exam Present: edema (mild BLE) - Routine Skin Exam Present: intact - Routine Neurological Exam Present: alert, oriented X3 - Routine Psychiatric Exam Present: normal affect, normal thought process - Urinary Catheter Management Urethral Cath placed during this visit: yes, but has since been removed by the nurse Insertion date: 11/01/17 Removal date: 11/03/17 Removal time: 16:25 Results 11/04/17 04:28 11/04/17 04:28 CBC 11/04/17 Range/Units 04:28 WBC 9.0 (4.5-11.0) T/MM3 RBC 4.23 (4.00-5.20) M/MM3 Hgb 11.6 L (12-16) GM/DL Hct 36.6 (36-46) % Plt Count 222 (130-400) T/MM3 Neut # (Auto) 5.5 (1.8-7.7) T/MM3 Lymph # (Auto) 2.0 (1-4.8) T/MM3 [place] # (Auto) 1.2 H (0-0.8) T/MM3 Eos # (Auto) 0.3 (0-0.5) T/MM3 Baso # (Auto) 0.0 (0-0.2) T/MM3 Comprehensive Metabolic Panel 11/04/17 Range/Units 04:28 Sodium 142 (134-144) MEQ/L Potassium 4.2 (3.6-5) MEQ/L Chloride 97 L (98-107) MEQ/L Carbon Dioxide 32 H (22-30) MEQ/L BUN 15.0 (7-17) MG/DL Creatinine 1.0 (0.7-1.2) mg/dL Glucose 186 H (65-110) MG/DL Calcium 9.8 (8.4-10.2) MG/DL Intake and Output 11/03/17 11/04/17 11/04/17 21:59 06:59 14:59 Intake Total 600 / 600 Output Total Balance 600 / 600 Intake: IV MAGNESIUM SULFATE 1gm PREMIX 1 gm In 100 ml @ 100 mls/hr IV Q1H [facility] Rx#:[id number] Oral 600 / 600 Output: Urine Other: Urine Appearance Urine Color Urine Odor Stool Color Brown Stool Consistency Dry and Hard Formed Size of Bowel Movement Moderate # Voids 1 # Bowel Movements 1 Weight 122.5 kg Patient Weight 11/05/17 06:59 Weight 122.5 kg Laboratory Results - last 24 hr 11/03/17 11/03/17 11/04/17 14:56 20:37 04:28 WBC 9.0 RBC 4.23 Hgb 11.6 L Hct 36.6 MCV 86.5 MCH 27.4 MCHC 31.7 RDW Std Deviation 48.1 Plt Count 222 MPV 12.3 Immature Gran % (Auto) 0.2 Neut % (Auto) 60.8 Lymph % (Auto) 22.0 L [place] % (Auto) 13.0 H Eos % (Auto) 3.8 Baso % (Auto) 0.2 Neut # (Auto) 5.5 Lymph # (Auto) 2.0 [place] # (Auto) 1.2 H Eos # (Auto) 0.3 Baso # (Auto) 0.0 Abs Immat Gran (auto) 0.02 Turbidity Sodium Potassium Chloride Carbon Dioxide Anion Gap BUN Creatinine GFR Calculation BUN/Creatinine Ratio Glucose Glucometer 263 173 Calculated Osmolality Calcium Magnesium Icterus Index Specimen Hemolysis 11/04/17 11/04/17 11/04/17 04:28 06:31 11:24 WBC RBC Hgb Hct MCV MCH MCHC RDW Std Deviation Plt Count MPV Immature Gran % (Auto) Neut % (Auto) Lymph % (Auto) [place] % (Auto) Eos % (Auto) Baso % (Auto) Neut # (Auto) Lymph # (Auto) [place] # (Auto) Eos # (Auto) Baso # (Auto) Abs Immat Gran (auto) Turbidity < 20 Sodium 142 Potassium 4.2 Chloride 97 L Carbon Dioxide 32 H Anion Gap 13 BUN 15.0 Creatinine 1.0 GFR Calculation 55 BUN/Creatinine Ratio 15 Glucose 186 H Glucometer 183 288 Calculated Osmolality 279 Calcium 9.8 Magnesium 1.7 Icterus Index < 2 Specimen Hemolysis 34 H - Imaging and Cardiology EKG results: image reviewed Assessment and Plan - Assessment and Plan (1) CAD (coronary artery disease), [place] coronary artery Status: Acute (2) Aortic stenosis, severe Status: Acute (3) Malignant hypertension Status: Acute (4) NSTEMI (non-ST elevated myocardial infarction) Status: Acute (5) Atrial fibrillation with RVR Status: Acute - Assessment and Plan NSTEMI: Elevated Troponin: 1) 0.042, 2)0.089, 3) 1.140 - Continue to trend - Heparin drip - NPO after breakfast for LHC in afternoon - Denies chest pain, however is diabetic AFib RVR: self converted, symptomatic, reports palpitations - 2D echo: Normal LV systolic function with ejection fraction of 65%, Mild concentric left ventricular hypertrophy, Mitral annulus calcification with moderate mitral regurgitation, Moderate aortic stenosis with a valve area of 1.14 cm2, Mild tricuspid regurgitation with estimated pulmonary artery systolic pressure of 34, Mild pulmonary insufficiency. - Lasix 40mg IV Q8H - Amiodarone bolus and drip for antiarrhythmic therapy - Continue to monitor cardiac telemetry - EKG in am - TSH and Mag HTN: Increase Labetalol to 200mg po BID - Add Amlodipine 5mg daily - Renal duplex - UA NSTEMI CAD, CABG surgical consult pending AFib RVR MR Malignant HTN 11/03/17 Pt underwent a cardiac cath 11/02/17 findings as above. RCA 80% stenosis, high pulmonary capillary wedge pressures and . Plan is to remain hospitalized, manage bp and monitor pt due to , CAD; transfer to facility capable of higher level of intervention for Surgical consult for Aortic valve replacement and CABG. No ASA due to possible impending surgical intervention. Statin therapy, atorvastatin 40mg daily. No TERRY due to concurrent . Remain on Amio 200mg daily for afib control, maintaining SR on tele, rate 70- 90. Lovenox. TSH wnl. ECG this AM SR, septal NV, QTc .394 Lasix increased to 40mg bid for right failure management, pt tolerating well. Creatinine stable at 1 today, lytes stable. Maintaining SR on tele. Continue amiodarone 200mg daily. SBP up to 160's today, attending increased amlodipine from 5 to 10mg daily, with an additional 5mg given today. In addition to labetolol 200 mg bid. Monitor. 11/04/17 Creatinine stable, lasix 40mg bid, diuresing well. Pt reports greatest ease of breathing she has had for months. No ASA, continue Statin therapy, no TERRY. Amio 200mg daily, tele SR, Qt stable. Lovenox 40mg daily, discussed this dosing vs 1mg/kg with Seda he prefers this dosing at the pre-op time. SBP remains up to 160, attending increased labetolol to 300mg bid today, continue amlodipine 10mg daily. Monitor. Hospital Course Summary Disclaimer: The visit summary below is not to be considered part of the above Progress Note. <Ritesh Stack - Last Filed: 11/07/17 07:54> Exam Vital signs: Temperature 97 F 11/05/17 12:00 Pulse Rate 77 11/05/17 12:00 Respiratory Rate 20 11/05/17 12:00 Blood Pressure 117/73 11/05/17 12:00 Pulse Oximetry 96 11/05/17 12:00 Inpatient Medications: Discontinued Medications Generic Name Dose Route Start Last Admin Trade Name Freq PRN Reason Stop Dose Admin Acetaminophen 325 - 650 mg 11/02/17 16:33 Tylenol PO Q5H PRN Pain Acetaminophen/Butalbital/Caffeine 2 each 11/01/17 11:18 Fioricet PO Q4H PRN Headache Al Hydroxide/Mg Hydroxide 30 ml 11/02/17 16:33 11/03/17 15:01 Maalox Plus PO 30 ml Q3H PRN Administration Indigestion Amiodarone HCl 200 mg 11/02/17 17:00 11/05/17 08:39 Pacerone PO 200 mg DAILY ERICA Administration Amlodipine Besylate 5 mg 11/01/17 14:15 11/03/17 08:56 Norvasc PO 5 mg DAILY ERICA Administration Amlodipine Besylate 10 mg 11/04/17 09:00 11/05/17 08:41 Norvasc PO 10 mg DAILY ERICA Administration Amlodipine Besylate 5 mg 11/03/17 10:00 11/03/17 11:22 Norvasc PO 11/03/17 10:01 5 mg O ONE Administration Aspirin 324 mg 11/01/17 06:21 11/01/17 06:18 Asa PO 11/01/17 06:22 324 mg O ONE Administration Atorvastatin Calcium 20 mg 11/04/17 21:00 11/04/17 21:29 Lipitor PO 20 mg HS ERICA Administration Atropine Sulfate 0.5 mg 11/02/17 16:33 Atropine IVP Q5M PRN Bradycardia Bisacodyl 5 - 10 mg 11/02/17 16:33 Dulcolax PO DAILY PRN Constipation Bisacodyl 10 mg 11/02/17 16:33 Dulcolax RECTALLY DAILY PRN Constipation Carisoprodol 350 mg 11/01/17 16:06 11/05/17 03:19 Soma PO 350 mg TID PRN Administration Enoxaparin Sodium 40 mg 11/02/17 17:00 11/04/17 17:25 Lovenox SQ 40 mg DAILY@1700 ERICA Administration Furosemide 40 mg 11/01/17 17:00 11/02/17 08:11 Lasix IVP 40 mg Q8HR ERICA Administration Furosemide 40 mg 11/03/17 17:00 11/05/17 08:00 Lasix PO 40 mg 0900,1700 ERICA Administration Furosemide 80 mg 11/02/17 17:00 11/03/17 09:41 Lasix IVP 11/03/17 09:01 80 mg Q8HR ERICA Administration Heparin Sodium (Beef Lung) 4,000 unit 11/01/17 06:22 11/01/17 06:30 Heparin Bolus IVP 11/01/17 06:23 4,000 unit O ONE Administration Heparin Sodium (Beef Lung) 1,000 unit 11/01/17 16:07 11/01/17 16:47 Heparin Bolus IV 11/01/17 16:08 1,000 unit O ONE Administration Heparin Sodium (Porcine) 20,000 unit in 500 mls @ 30 mls/hr 11/01/17 06:30 00:57 Heparin Drip IV Not Given .[id number] ERICA Protocol 1,200 UNIT/HR Sodium Chloride 1,000 mls @ 1,000 mls/hr 11/01/17 06:21 11/01/17 08:16 Normal Saline IV 11/01/17 07:20 Infused .Q1H ONE Infusion Labetalol HCl 200 mg/ Sodium 200 mls @ 60 mls/hr 11/01/17 07:28 Chloride IV .Q3H20M PRN Protocol 1 MG/MIN Cefepime HCl 1 gm/ Sodium 100 mls @ 200 mls/hr 11/01/17 07:38 11/01/17 09:13 Chloride IV 11/01/17 08:07 Infused O ONE Infusion Amiodarone HCl 900 mg/ Sodium 500 mls @ 16.66 mls/hr 11/01/17 20:30 11/02/17 06:00 Chloride IV 0.5 mg/min .Q24H ERICA 16.7 mls/hr 0.5 MG/MIN Infusion Amiodarone HCl 450 mg/ Sodium 250 mls @ 33.33 mls/hr 11/01/17 14:30 11/01/17 21:10 Chloride IV 11/01/17 20:30 Infused .Q7H31M ERICA Infusion 1 MG/MIN Amiodarone HCl 150 mg/ Sodium 103 mls @ 618 mls/hr 11/01/17 14:17 11/01/17 15 :03 Chloride IV 11/01/17 14:26 Infused O ONE Infusion Magnesium Sulfate/Dextrose 1 gm in 100 mls @ 100 mls/hr 11/03/17 12:06 15:25 Mag Sulf 1gm Premix IV 11/03/17 14:05 Infused Q1H ERICA Infusion Vancomycin HCl 1,000 mg/ 250 mls @ 250 mls/hr 11/04/17 16:38 11/04/17 18:26 Sodium Chloride IV 11/04/17 16:39 Infused O ONE Infusion Vancomycin HCl 1,500 mg/ 500 mls @ 250 mls/hr 11/05/17 09:00 11/05/17 11:40 Sodium Chloride IV Infused Q12H ERICA Infusion Insulin Aspart 2 - 8 unit 11/01/17 16:09 11/05/17 11:13 Novolog SQ 5 unit SS PRN Administration Hyperglycemia Protocol Labetalol HCl 5 mg 11/01/17 07:25 Trandate IVP 11/01/17 07:26 O ONE Labetalol HCl 20 mg 11/01/17 07:30 11/01/17 07:31 Trandate IVP 11/01/17 07:31 20 mg O ONE Administration Labetalol HCl 5 mg 11/01/17 11:16 11/01/17 12:53 Trandate IVP 5 mg O PRN Administration SBP>180 Labetalol HCl 100 mg 11/01/17 11:45 11/01/17 12:05 Normodyne PO 100 mg BID ERICA Administration Labetalol HCl 100 mg 11/01/17 14:12 11/01/17 14:12 Normodyne PO 11/01/17 14:13 100 mg O ONE Administration Labetalol HCl 200 mg 11/01/17 21:00 11/04/17 08:55 Normodyne PO 200 mg BID ERICA Administration Labetalol HCl 300 mg 11/04/17 12:47 11/05/17 08:40 Normodyne PO 300 mg BID ERICA Administration Lorazepam 0.5 - 1 mg 11/02/17 16:33 Ativan PO Q4H PRN Anxiety Lorazepam 0.5 - 1 mg 11/02/17 16:33 Ativan Inj IVP Q4H PRN Anxiety Magnesium Hydroxide 30 ml 11/02/17 16:33 Mom PO DAILY PRN Constipation Metoclopramide HCl 5 - 10 mg 11/02/17 16:33 Reglan IVP Q6H PRN Nausea &/or vomiting Morphine Sulfate 2 - 5 mg 11/01/17 09:58 11/02/17 16:40 Morphine Sulfate Inj IVP 5 mg Q5M PRN Administration Chest pain Nitroglycerin 0.4 mg 11/01/17 06:21 11/01/17 06:20 Nitrostat SL 0.4 mg Q5MIN3 PRN Administration Chest pain Nitroglycerin 0.4 mg 11/02/17 16:33 Nitrostat SL Q5MIN3 PRN Angina Ondansetron HCl 4 mg 11/02/17 16:33 Zofran IVP Q6H PRN Nausea &/or vomiting Pantoprazole Sodium 40 mg 11/03/17 09:00 11/03/17 08:56 Protonix Iv IVP 40 mg DAILY ERICA Administration Pantoprazole Sodium 40 mg 11/04/17 06:30 11/05/17 06:16 Protonix Tab PO 40 mg ACB ERICA Administration Potassium Chloride 20 meq 11/01/17 17:30 11/05/17 12:56 K-Dur 20 Meq Tablet PO 20 meq TIDWM ERICA Administration Promethazine HCl 12.5 - 25 mg 11/02/17 16:33 Phenergan Inj IVP Q6H PRN Nausea &/or vomiting Promethazine HCl 12.5 mg 11/02/17 10:38 11/02/17 10:30 Phenergan Inj IVP 12.5 mg Q6H PRN Administration Sodium Chloride 10 - 80 ml 11/01/17 06:21 11/05/17 09:40 Iv Flush IVF 10 ml PRN PRN Administration Flushing Tramadol/Acetaminophen 1 tab 11/01/17 16:11 11/05/17 12:56 Ultracet PO 1 tab Q4H PRN Administration Pain Vancomycin HCl 1 each 11/04/17 16:39 11/04/17 17:25 Pharmacy Consult - Vancomycin MC 11/04/17 16:40 1 each O ONE Administration Zolpidem Tartrate 5 mg 11/01/17 20:44 11/04/17 21:29 Ambien PO 5 mg HS PRN Administration Insomnia - Urinary Catheter Management Urethral Cath placed during this visit: no Results 11/05/17 04:52 11/05/17 04:52 Assessment and Plan - Assessment and Plan (1) Malignant hypertension Status: Acute (2) NSTEMI (non-ST elevated myocardial infarction) Status: Acute (3) Atrial fibrillation with RVR Status: Acute (4) Aortic stenosis, severe Status: Acute (5) CAD (coronary artery disease), [place] coronary artery Status: Acute - Attestation Attestation Narrative: 11/07/17 07:52 Recommendation I agree with the above and I am involved in the formulation of the patient's plan of care. Hospital Course Summary Disclaimer: The visit summary below is not to be considered part of the above Progress Note.
[2017-11-04] MEDS ORDERED: VANCOMYCIN - PHARMACY CONSULT MC ONE (16:39)
[2017-11-04] MEDS: ENOXAPARIN 40 MG/0.4 ML INJECTION SQ SCH (17:25)
[2017-11-04] MEDS ORDERED: ATORVASTATIN 20 MG TABLET PO SCH (21:00)
[2017-11-04] MEDS: ZOLPIDEM 5 MG TABLET PO PRN (21:29)
[2017-11-05] MEDS: TRAMADOL/APAP 37.5 MG/325 MG TABLET PO PRN ×3 (03:19→12:56)
[2017-11-05] MEDS: CARISOPRODOL 350 MG TABLET PO PRN (03:19)
[2017-11-05] MEDS: PANTOPRAZOLE 40 MG TABLET PO SCH (06:16)
[2017-11-05] MEDS: INSULIN ASPART 100unit/ml INJECTION SQ PRN ×2 (06:16→11:13)
[2017-11-05] MEDS: FUROSEMIDE 40 MG TABLET PO SCH (08:00)
--- NOTE | 2017-11-05 08:21 | Pharmacy Consult-Antibiotics ---
Pharmacy Consult-Vancomycin - Laboratory Information WBC 8.3 T/MM3 (4.5-11.0) 11/05/17 04:52 BUN 19.0 MG/DL (7-17) H 11/05/17 04:52 Creatinine 1.1 mg/dL (0.7-1.2) 11/05/17 04:52 - Consult Information VANCOMYCIN CONSULT: Dx: CELLULITIS Current Renal Fx: SCr = 1.1 mg/dl. Will give Vancomycin 1,500mg IV q12hrs. Will continue to monitor and adjust regimen to maintain therapeutic levels. Thank you.
--- NOTE | 2017-11-05 08:30 | XRay Report ---
INDICATION: follow up pulm edema PROCEDURE: CHEST 2-VIEWS UPRIGHT (PA & LAT) Encounter: Initial COMPARISON: November 01, 2017 FINDINGS: Prior pulmonary edema has nearly resolved. No new consolidation. Possible trace right effusion. No pneumothorax. Heart size and mediastinal contours are within normal limits Impression: Significantly improved pulmonary edema. .
[2017-11-05] MEDS: AMIODARONE 200 MG TABLET PO SCH (08:39)
[2017-11-05] MEDS: LABETALOL 100 MG TABLET PO SCH (08:40)
[2017-11-05] MEDS: AMLODIPINE 10 MG TABLET PO SCH (08:41)
[2017-11-05] MEDS: SALINE FLUSH 10ml SYRINGE IVF PRN (09:40)
--- NOTE | 2017-11-05 11:31 | Progress Note ---
- Date 11/05/17 Subjective: F/U: Malignant HTN, NSTEMI, Severe Doing okay today. Breathing well at rest but does note she became winded with walking in the halls. Does feel dizzy/unsteady with positional changes. Not having chest pain. No nausea. Objective Vital signs: Temperature 97.8 F 11/05/17 07:34 Pulse Rate 62 11/05/17 09:00 Respiratory Rate 18 11/05/17 07:34 Blood Pressure 123/70 11/05/17 07:34 Pulse Oximetry 93 11/05/17 07:34 Rhythm: Normal Sinus Rhythm Height/Weight/BMI: Height 1.57 m Weight 122.2 kg Body Mass Index 50.1 - Constitutional Present: well nourished, well developed, morbidly obese, cooperative - Routine HEENT Exam Head: Present: normocephalic, atraumatic Eye: Present: EOMI, PERRL ENT: Present: mucous membranes moist - Routine Respiratory Exam Present: decreased breath sounds, respiratory distress. Absent: rales, rhonchi , stridor, wheezes, crackles - Routine Cardiovascular Exam Present: RRR, murmur - Routine Abdominal Exam Present: soft, normoactive bowel sounds, non distended, non tender. Absent: guarding - Routine Extremities Exam Present: edema (Trace BLE). Absent: cyanosis, clubbing - Routine Musculoskeletal Exam Musculoskeletal: Present: no clubbing or cyanosis - Routine Skin Exam Present: dry, warm - Routine Neurological Exam Present: alert, CN II-XII intact, moving all extremities, vision grossly intact , hearing grossly intact, normal speech. Absent: motor deficit, altered mental status - Routine Psychiatric Exam Present: normal affect, normal thought process, cooperative Results - Labs CBC & Chem 7: 11/05/17 04:52 11/05/17 04:52 Microbiology Results: Microbiology 11/04/17 10:50 Peripheral/Iv Start Blood Culture - Preliminary No Growth After 1 Day 11/04/17 10:50 Peripheral/Iv Start Blood Culture - Preliminary No Growth After 1 Day Assessment and Plan (1) Malignant hypertension Current visit: Yes Status: Acute (2) Aortic stenosis, severe Current visit: Yes Status: Acute (3) NSTEMI (non-ST elevated myocardial infarction) Current visit: Yes Status: Acute (4) Pleural effusion Current visit: Yes Status: Acute (5) Ground glass opacity present on imaging of lung Current visit: Yes Status: Acute (6) Respiratory distress Current visit: Yes Status: Resolved (7) Morbid obesity Current visit: Yes Status: Acute Assessment and Plan: Assessment Malignant hypertension - improved NSTEMI (non-ST elevated myocardial infarction) Severe ASCAD - Right coronary artery had mid 80% stenosis HDL PAF - RVR controlled Respiratory distress - resolved Type II Diabetes Stage III CKD GERD Irritable Bowel Syndrome Osteoarthritis Chronic back pain Gait instability Gen debility One of 2 Blood cultures positive -- contaminant -- (Staph aureus reported, but incorrect) Morbid obesity with BMI 49. Plan Will discharge to [facility] under the care of Dr Stack for further cardiothoracic surgical evaluation. Medically stable. May discontinue Vancomycin - initial BC contaminant, repeat BC negative. Continue with medications initiated on acute. Will need f/u with Dr Eckert 1 week post discharge from [facility]. See orders for details Case discussed with CM, Dr Stack, and family. Time spent with care and discharge greater than 30 minutes. DVT Prophylaxis: Lovenox Resuscitation Status: Full Code - Physician Narrative Physician: Kar Zhu MD Narrative: Date: 11/05/17 Time: 1128 Hospital Course Summary Disclaimer: The visit summary below is not to be considered part of the above Progress Note. Hospital Course: 11/02/17 Admission This is 67-year-old woman who has had an episode malignant hypertension that is showing improvement with current regimen, she has plateaued with systolic blood pressure around 200 and remained there this afternoon. The dyspnea has resolved with the control blood pressure. Although her D dimer was elevated she did not have a pulmonary embolus. Additional medications have been ordered by cardiology at this time. 3rd troponin trended up and is at 1.1. She remains otherwise comfortable with some of her chronic back pain being exacerbated while she is down in bed. Case discussed with Genoveva Jonas. My appreciation to her and to Dr. Stack. DISPOSITION: Inpatient status in ICU 11/03/17 Pt underwent a cardiac cath 11/02/17 findings as above. RCA 80% stenosis, high pulmonary capillary wedge pressures and . Plan is to remain hospitalized, manage bp and monitor pt due to , CAD; transfer to facility capable of higher level of intervention for Surgical consult for Aortic valve replacement and CABG. No ASA due to possible impending surgical intervention. Statin therapy, atorvastatin 40mg daily. No TERRY due to concurrent . Remain on Amio 200mg daily for afib control, maintaining SR on tele, rate 70- 90. Lovenox. TSH wnl. ECG this AM SR, septal [place], QTc .394 Lasix increased to 40mg bid for right failure management, pt tolerating well. Creatinine stable at 1 today, lytes stable. Maintaining SR on tele. Continue amiodarone 200mg daily. SBP up to 160's today, attending increased amlodipine from 5 to 10mg daily, with an additional 5mg given today. In addition to labetolol 200 mg bid. Monitor. 11/04/17 Creatinine stable, lasix 40mg bid, diuresing well. Pt reports greatest ease of breathing she has had for months. No ASA, continue Statin therapy, no TERRY. Amio 200mg daily, tele SR, Qt stable. Lovenox 40mg daily, discussed this dosing vs 1mg/kg with Seda he prefers this dosing at the pre-op time. SBP remains up to 160, attending increased labetolol to 300mg bid today, continue amlodipine 10mg daily. Monitor. 11/05/17 Will discharge to [facility] under the care of Dr Stack for further cardiothoracic surgical evaluation. Medically stable. May discontinue Vancomycin - initial BC contaminant, repeat BC negative. Continue with medications initiated on acute. Will need f/u with Dr Eckert 1 week post discharge from [facility]. See orders for details
--- NOTE | 2017-11-05 11:56 | Discharge Summary ---
Discharge Information Date of admission: 11/02/17 13:52 Anticipated date of discharge: 11/05/17 Attending Physician: Kar Zhu MD Primary care physician: Gary Eckert II, MD Consults: Dr Valera - Cardiology PT Outpt Cardiac Rehab Consult - Discharge Diagnosis (1) Malignant hypertension Status: Acute (2) Aortic stenosis, severe Status: Acute (3) NSTEMI (non-ST elevated myocardial infarction) Status: Acute (4) Pleural effusion Status: Acute (5) Ground glass opacity present on imaging of lung Status: Acute (6) Respiratory distress Status: Resolved (7) Morbid obesity Status: Acute Admitting diagnosis Malignant hypertension Discharge diagnosis Malignant hypertension - improved NSTEMI (non-ST elevated myocardial infarction) Associated conditions and complications Severe ASCAD - Right coronary artery had mid 80% stenosis HDL PAF - RVR controlled Pulmonary edema - resolved Respiratory distress - resolved Hypomagnesemia (POA) - resolved Hypernatremia (POA) - resolved Type II Diabetes Stage III CKD GERD Irritable Bowel Syndrome Osteoarthritis Chronic back pain Gait instability Gen debility One of 2 Blood cultures positive -- contaminant -- (Staph aureus reported, but incorrect) Morbid obesity with BMI 49. - Procedures Procedures: Date of Exam: 11/02/17 Type of Exam: CA heart cath LT PROCEDURE 1. Left heart catheterization. 2. Coronary angiography. 3. Left ventriculography. 4. Right heart catheterization. 5. Abdominal aortography. 6. Right femoral angiography to visualize the vessel for closure device. 7. Successful Mynx deployment for hemostasis. TECHNIQUE She was prepped and draped in the usual sterile techniques. Conscious sedation was performed using Versed and fentanyl. 1% lidocaine was used for local anesthesia. Using modified Seldinger technique, arterial access was obtained into the right femoral artery with placement of a 6-[place] arterial sheath. Venous access was obtained into the right femoral vein with placement of a 7- [place] venous sheath. HEMODYNAMIC DATA Hemodynamic data were obtained by advancing a [employer] catheter through the venous system and right heart into the pulmonary artery. Pulmonary capillary wedge pressure mean of 23, pulmonary artery pressure was 54/ 24 with a mean of 37, right ventricular pressure was 54/17 with EDP of 22, and right atrial mean pressure of 19. LEFT VENTRICULOGRAPHY Left ventriculography in single-plane MILLS shallow projection showed normal LV systolic function with ejection fraction of about 65% with about 25-30 mm of gradient across the aortic valve. LVEDP was about 26. Aortic saturation was 94% and mixed venous saturation obtained from pulmonary artery position was 52%. Aortic valve area is calculated to be about 0.7-0.8 cm2. Thermodilution cardiac output was 4.29 L/min with an index of 1.9 L/min/m2. CORONARY ANGIOGRAPHY Left main was free of significant lesions and bifurcated into left anterior descending and left circumflex arteries. Left anterior descending artery had diffuse disease of up to about 30% but no hemodynamically significant lesions in LAD or diagonals. Left circumflex artery was free of significant lesions. Obtuse marginal had about 30% stenosis. Left coronary system had mild to moderate calcification. Right coronary artery had mid 80% stenosis. ABDOMINAL AORTOGRAPHY Abdominal aortography showed smooth abdominal aorta with no significant lesions or aneurysms. There were single renal arteries to each kidney which were patent. Right femoral angiography showed patent common femoral, proximal SFA and profunda and therefore Mynx was used for hemostasis. IMPRESSION 1. Normal LV systolic function with ejection fraction of about 65%. 2. Aortic stenosis with a valve area of 0.7-0.8 cm2. 3. Coronary artery disease as described above. 4. Moderate elevation in right heart pressures. 5. No evidence of renal artery stenosis. 6. Successful Mynx deployment for hemostasis. PLAN Will increase diuretics to improve her symptoms and pulmonary capillary wedge pressure. Meanwhile, will transfer her in the near future for cardiovascular surgical consultation for aortic valve replacement and coronary artery bypass graft. Will continue medical management for hypertension. Date of Exam: 11/01/17 Type of Exam: US ECHO Doppler complete Left atrial dimension is normal. Left ventricular end-diastolic dimension is normal. Left ventricle wall thickness is increased. LV systolic function is normal with ejection fraction of 65%. Right atrium is normal. Right ventricle is normal. Aortic root dimension is normal. Mitral annulus is calcified. Mitral valve leaflets are normal with moderate mitral regurgitation. Aortic valve shows fibrocalcific changes with restriction on opening motion. Transaortic velocities are increased with peak velocity of 3.55 m/sec with peak gradient of 50 and mean gradient of 33. Aortic valve area is calculated at 1.14 cm2. There is no aortic insufficiency. Tricuspid valve shows mild tricuspid regurgitation with estimated pulmonary artery systolic pressure of 34. Pulmonary valve shows mild pulmonary insufficiency. There is no pericardial effusion. IMPRESSION 1. Normal LV systolic function with ejection fraction of 65%. 2. Mild concentric left ventricular hypertrophy. 3. Mitral annulus calcification with moderate mitral regurgitation. 4. Moderate aortic stenosis with a valve area of 1.14 cm2. 5. Mild tricuspid regurgitation with estimated pulmonary artery systolic pressure of 34. 6. Mild pulmonary insufficiency. - Laboratory Labs: Admit Lab 11/01/17 06:18 WBC 24.6 H Hgb 12.8 Hct 41.4 MCV 89.2 Plt Count 406 H Neutrophils % (Manual) 42.0 Lymphocytes % (Manual) 46.0 H Monocytes % (Manual) 8.0 Eosinophils % (Manual) 3.0 Basophils % (Manual) 1.0 Admit Lab 11/01/17 06:18 Sodium 146 H Potassium 4.2 Chloride 105 Carbon Dioxide 25 Anion Gap 16 H BUN 13.0 Creatinine 0.9 GFR Calculation 62 BUN/Creatinine Ratio 14 Glucose 274 H Calculated Osmolality 291 H Calcium 9.9 Total Bilirubin 0.70 AST 25 ALT 33 Alkaline Phosphatase 108 Troponin I 0.042 NT-Pro-B Natriuret Pep 1080 H Total Protein 8.2 Albumin 4.8 Globulin 3.4 Albumin/Globulin Ratio 1.4 Lipase 107 TSH 11/01/17 14:06 TSH 1.48 Troponin 11/01/17 11/01/17 11/01/17 06:18 07:54 14:06 Troponin I 0.042 0.089 D 1.140 H D 11/01/17 11/02/17 11/02/17 19:48 01:08 07:33 Troponin I 1.800 H D 1.310 H 1.060 H 11/02/17 13:05 Troponin I 0.786 H 11/05/17 04:52 11/05/17 04:52 - Microbiology Microbiology 11/04/17 10:50 Peripheral/Iv Start Blood Culture - Preliminary No Growth After 1 Day 11/04/17 10:50 Peripheral/Iv Start Blood Culture - Preliminary No Growth After 1 Day - Radiology Radiology: Date of Exam: 11/01/17 PROCEDURE: XR chest 1V Findings: Diffuse interstitial prominence with scattered groundglass opacities and interlobular septal thickening, seen on the CT. Small pleural effusions. No pneumothorax. Cardiac silhouette is moderately enlarged. Mediastinal contours are normal. Pulmonary vascularity is enlarged. Impression: Moderate to severe pulmonary edema. Date of Exam: 11/01/17 Type of Exam: CT angio pulmonary emboli/aorta chest Findings: CT angiogram of the chest for PE: Pulmonary arteries: Exam is diagnostic to the interlobar pulmonary arterial level. Motion and streak artifact precludes adequate evaluation of the segmental and subsegmental vessels. There are no filling defects identified to suggest a pulmonary embolus. Other findings: Severe interlobular septal thickening with diffuse centrilobular groundglass opacities and small pleural effusions bilaterally. No pneumothorax. The central airways are patent. No axillary adenopathy. There are prominent mediastinal nodes in the paratracheal region measuring up to 1.5 cm in short axis dimension. Heart size is normal. No pericardial effusion. The upper abdomen shows no acute findings. Impression: 1. No pulmonary embolus. 2. Severe pulmonary edema. 3. Mediastinal adenopathy could be reactive due to the acute process in the chest although underlying neoplasm, metastatic disease or lymphoma cannot be entirely excluded. CT angiogram of the chest for aorta: Findings: Noncontrast images show no evidence of an intramural hematoma. There is significant attenuation artifact due to patient body habitus and motion. Postcontrast images show no definite evidence of aortic dissection. No aneurysm. Contrast bolus timing is somewhat suboptimal. The visualized upper abdominal aorta is normal in caliber with mild atherosclerotic plaque at the left renal and SMA origins. Please see the above report for further details on the extravascular findings in the chest. Impression: Somewhat limited exam without evidence of aortic aneurysm or dissection. Date of Exam: 11/01/17 PROCEDURE: US carotid Doppler BI TECHNIQUE: Grayscale, color and duplex Doppler imaging was performed of the carotid systems bilaterally. Velocities in cm/sec - validated velocity measurements with angiographic measurements, velocity criteria are extrapolated from diameter data as defined by the Society of Radiologists in Ultrasound Consensus Conference Radiology 2003 ; 229;340-346. RIGHT: PSV ICA 116 EDV ICA 31 PSV CCA 83 EDV CCA 10 SVR 1.3 PSV ECA 82 ICA Diameter reduction 20%-40% (1.2-1.4 [id number])% LEFT: PSV ICA 111 EDV ICA 33 PSV CCA 85 EDV CCA 23 SVR 1.2 PSV ECA 52 ICA Diameter reduction 20%-40% (1.2-1.4 [id number])% The right vertebral artery is patent with cephalic flow. The left vertebral artery is patent with cephalic flow. Diffuse common carotid intimal wall thickening bilaterally. Scattered calcified plaque in the carotid bulbs and proximal ICAs. IMPRESSION: No hemodynamically significant carotid stenosis. Date of Exam: 11/01/17 PROCEDURE: US renal Doppler Findings: Exam was technically changing due to patient limitations. Scans of the kidneys demonstrate normal morphology. The right kidney measures 10.7 cm in length. The left kidney measures 10.5 cm in length. There is no collecting system dilatation, contour deforming mass, nephrolithiasis, or abnormal perinephric fluid collection. Color Doppler imaging demonstrates normal vascularization. Resistive indices from the intrarenal arteries in the upper, middle, and lower portions of the right kidney are normal. Resistive indices from the intrarenal arteries in the upper, middle, and lower portions of the left kidney are normal. Arterial waveforms are normal. Impression: No evidence of hemodynamically significant renal arterial stenosis. Date of Exam: 11/04/17 PROCEDURE: CHEST 2-VIEWS UPRIGHT (PA & LAT) FINDINGS: Prior pulmonary edema has nearly resolved. No new consolidation. Possible trace right effusion. No pneumothorax. Heart size and mediastinal contours are within normal limits Impression: Significantly improved pulmonary edema. 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 Has never had any episode similar to this, denies nausea vomiting or malaise. Did not have any chest pain but did have some headache and blurry vision. She has had no sick contacts and has not had any medication changes. She was seen by her primary care physician approximately 2 weeks ago and at that time was told that her blood pressure was normal. For complete details of the H&P refer to that document. Objective Vital signs: Temperature 97.8 F 11/05/17 07:34 Pulse Rate 62 11/05/17 09:00 Respiratory Rate 18 11/05/17 07:34 Blood Pressure 123/70 11/05/17 07:34 Pulse Oximetry 93 11/05/17 07:34 Rhythm: Normal Sinus Rhythm Height/Weight/BMI: Height 1.57 m Weight 122.2 kg Body Mass Index 50.1 Hospital Course This is a general summary of the patient's hospital course. For more details refer to the complete medical record. Hospital course: 11/02/17 Admission This is 67-year-old woman who has had an episode malignant hypertension that is showing improvement with current regimen, she has plateaued with systolic blood pressure around 200 and remained there this afternoon. The dyspnea has resolved with the control blood pressure. Although her D dimer was elevated she did not have a pulmonary embolus. Additional medications have been ordered by cardiology at this time. 3rd troponin trended up and is at 1.1. She remains otherwise comfortable with some of her chronic back pain being exacerbated while she is down in bed. Case discussed with Genoveva Jonas. My appreciation to her and to Dr. Valera. DISPOSITION: Inpatient status in ICU 11/03/17 Pt underwent a cardiac cath 11/02/17 findings as above. RCA 80% stenosis, high pulmonary capillary wedge pressures and . Plan is to remain hospitalized, manage bp and monitor pt due to , CAD; transfer to facility capable of higher level of intervention for Surgical consult for Aortic valve replacement and CABG. No ASA due to possible impending surgical intervention. Statin therapy, atorvastatin 40mg daily. No TERRY due to concurrent . Remain on Amio 200mg daily for afib control, maintaining SR on tele, rate 70- 90. Lovenox. TSH wnl. ECG this AM SR, septal [place], QTc .394 Lasix increased to 40mg bid for right failure management, pt tolerating well. Creatinine stable at 1 today, lytes stable. Maintaining SR on tele. Continue amiodarone 200mg daily. SBP up to 160's today, attending increased amlodipine from 5 to 10mg daily, with an additional 5mg given today. In addition to labetolol 200 mg bid. Monitor. 11/04/17 Creatinine stable, lasix 40mg bid, diuresing well. Pt reports greatest ease of breathing she has had for months. No ASA, continue Statin therapy, no TERRY. Amio 200mg daily, tele SR, Qt stable. Lovenox 40mg daily, discussed this dosing vs 1mg/kg with Seda he prefers this dosing at the pre-op time. SBP remains up to 160, attending increased labetolol to 300mg bid today, continue amlodipine 10mg daily. Monitor. 11/05/17 Will discharge to [facility] under the care of Dr Valera for further cardiothoracic surgical evaluation. Medically stable. May discontinue Vancomycin - initial BC contaminant, repeat BC negative. Continue with medications initiated on acute. Will need f/u with Dr Eckert 1 week post discharge from [facility]. See orders for details Time spent with patient: discharge greater than 30 minutes Resuscitation Status: Full Code Discharge Plan - Discharge Disposition Discharge Date: 11/05/17 Disposition: 02 To [facility] Acute Care *Condition: Improved Reason For Visit (Visit label in EMR): malignant hypertension - Discharge Medications *Discharge Medications: New Acetaminophen [Tylenol] 325 - 650 mg PO Q5H PRN tab PRN Reason: Pain Amiodarone [Pacerone] 200 mg PO DAILY tab Atorvastatin [Lipitor] 20 mg PO HS tab Atropine Inj [Atropine] 0.5 mg IVP Q5M PRN vial PRN Reason: Bradycardia Bisacodyl Supp [Dulcolax] 10 mg RECTALLY DAILY PRN suppositor PRN Reason: Constipation Butalb/Acetaminophen/Caffeine [[id number]-Pwxzynee-Nvhn 50-325-40] 2 each PO Q4H PRN tab PRN Reason: Headache Carisoprodol [Soma] 350 mg PO TID PRN tab PRN Reason: Spasms Enoxaparin Sodium [Lovenox] 40 mg SQ DAILY@1700 syringe Furosemide [Lasix] 40 mg PO 0900,1700 tab Labetalol [Normodyne] 300 mg PO BID tab LORazepam [Ativan] 0.5 - 1 mg PO Q4H PRN tab PRN Reason: Anxiety Milk of Magnesia [Mom] 30 ml PO DAILY PRN udc PRN Reason: Constipation Pantoprazole Tab [Protonix Tab] 40 mg PO ACB tab Potassium Chloride [K-DUR 20 mEq Tablet] 20 meq PO TIDWM tab Zolpidem [Ambien] 5 mg PO HS PRN tab PRN Reason: Insomnia Insulin Aspart [NovoLOG] 2 - 8 unit SQ SS PRN vial PRN Reason: Hyperglycemia Amlodipine [Norvasc] 10 mg PO DAILY tab Nitroglycerin [Nitrostat] 0.4 mg SL Q5MIN3 PRN tab PRN Reason: Angina Continue Tramadol [Ultram] 50 mg PO PRN PRN PRN Reason: Pain Discontinued Ibuprofen 600 mg PO PRN PRN PRN Reason: Pain Humulin 70/30 (insulin NPH and reg human insulin) 100 unit/mL (70-30) SQ See Label Instructions SQ BID - Discharge Packet/Instructions *Diet: Resume heart healthy diet *Activity: Limit activity for 2 days. No lifting more than 10 pounds, no pushing or pulling for [address], operate machinery or drink alcohol for 2 days. Expect a phone call from Cardiac Rehab to schedule an appointment for you. If you have any questions, please contact Cardiac Rehab at: . New prescriptions: DO NOT STOP THESE MEDICATIONS WITHOUT AN ORDER FROM DR. VALERA *Pain Management/Treatment: Over the counter pain medication if needed. *Wound Care: Remove dressing after 24 hours. Keep site clean and dry. No tub baths or swimming for 1 week. You may shower. *Expected Signs/Symptoms: Bruising and tenderness at the site. *Notify Physician if: Site is bleeding, abnormal drainage, increased pain or fever of 101.5 or more. *During Business Hours Contact: Nursing staff at [facility] *After Business Hours Contact: [facility] *Pending Lab/Results: No Pending Lab - Referrals/Follow Up *Referrals/Follow Up: Gary Eckert II, MD [Family Provider] - (Will need hospital follow up 1 week after discharge from [facility]. ) Ritesh Valera MD [Physician] - (Will follow patient while hospitalized at [facility]) - Patient Handouts - Dismissal Complete Discharge Instructions are:: Complete Physician Narrative - Narrative Physician: Kar Zhu MD Attestation Narrative: Date: 11/05/17 Time: 1151 I have independently interviewed and examined patient prior to discharger. See my progress noted from today for details. Medically stable for discharge to [facility] for further cardiac care.
[2017-11-05 12:59] VITALS: BP 117/73; PULSE 77; RESP 20; TEMP 97; O2SAT 96
== END 2017-11-05 13:31 | disposition short-term general hospital (02) | DRG 281 ==
LOC: ED 06:10 → INTOOBSV 09:39 → CCU 09:39 → SUATTDRO 11-02 13:52 → MED 11-03 11:50
PROVIDERS: ADMIT Family Medicine; ATTEND Hospitalist